=== PATIENT | male | born 1955 | race Caucasian/White ===

== ENCOUNTER 2016-03-12 12:33 | Inpatient (IN) | payer OTHER ==
[2016-03-12] MEDS ORDERED: SODIUM CHLORIDE 0.9% 1,000 ML IV ONE (15:04)
--- NOTE | 2016-03-12 15:11 | ED ---
Wound/Laceration HPI - General Source: patient, RN notes reviewed Mode of arrival: ambulatory Limitations: no limitations <Marva Anne - Last Filed: 03/12/16 20:00> <Daniel Zarco - Last Filed: 03/13/16 01:37> - General Chief Complaint: Wound/Laceration Stated Complaint: Leg Infection Time Seen by Provider: 03/12/16 13:54 - History of Present Illness Initial Comments: Patient is a 60-year-old male to the emergency room for evaluation of right foot infection. Patient states he's had a foot wound for the past several weeks that has been treated at the wound center. Patient states that he was here on 03/08/16 has placed on antibiotics and told to follow-up with Center. Patient states he saw his toxicology teacher today and was advised to come here for admission. Patient denies any worsening pain. Patient does state his foot has become more swollen than usual over the past few days. Patient states he was supposed to go to the [facility] [place] once a week for the past few weeks but did miss about 3 or 4 weeks in a row. Patient states he has tingling in his toes that is normal for him. Patient does admit to a history of diabetes. Patient denies any fevers or chills, nausea, vomiting, abdominal pain, headache, chest pain, shortness of breath. Patient states been taking Tylenol 3 with relief of symptoms. (Marva Anne) - Related Data Home Medications Medication Instructions Recorded Confirmed Acetaminophen with Codeine 1 tab PO Q8H PRN 03/24/15 03/12/16 [Tylenol w/codeine #3] Doxazosin [Cardura] 4 mg PO HS 03/24/15 03/12/16 Ferrous Sulfate [Feosol] 325 mg PO BID 03/24/15 03/12/16 Fluticasone Nasal [place] [Flonase 2 spray EA NOSTRIL DAILY PRN 03/24/15 03/12/16 Nasal [place]] Gabapentin 800 mg PO TID 03/24/15 03/12/16 Simvastatin [Zocor] 20 mg PO HS 03/24/15 03/12/16 amLODIPine [Norvasc] 2.5 mg PO DAILY 03/24/15 03/12/16 glipiZIDE [Glucotrol] 10 mg PO DAILY 03/24/15 03/12/16 metFORMIN HCL [Glucophage] 500 mg PO BID-W/MEALS 03/24/15 03/12/16 ALPRAZolam [Xanax] 1 mg PO BID 04/21/15 03/12/16 SILVER sulfADIAZINE CREAM 1 applic TOPICAL HS 04/21/15 03/12/16 [Silvadene Cream] Aspirin EC [Ecotrin] 325 mg PO DAILY 03/08/16 03/12/16 Fenofibrate [Lofibra] 160 mg PO HS 03/08/16 03/12/16 Mupirocin [Mupirocin 2%] 1 applic TOPICAL HS 03/08/16 03/12/16 Previous Rx's Medication Instructions Recorded Cephalexin [Keflex] 500 mg PO Q6HR #40 cap 03/08/16 Allergies Allergy/AdvReac Type Severity Reaction Status Date / Time No Known Allergies Allergy Verified 03/12/16 16:31 Review of Systems ROS Other: All systems not noted in ROS Statement are negative. <Marva Anne - Last Filed: 03/12/16 20:00> ROS Other: All systems not noted in ROS Statement are negative. <Daniel Zarco - Last Filed: 03/13/16 01:37> ROS Statement: Those systems with pertinent positive or pertinent negative responses have been documented in the HPI. (Marva Anne) (Daniel Zarco) Past Medical History Past Medical History: Diabetes Mellitus, Hyperlipidemia, Hypertension, Osteoarthritis (OA) Additional Past Medical History / Comment(s): neuropathy. wound rt foot History of Any Multi-Drug Resistant Organisms: None Reported Past Surgical History: Tonsillectomy Additional Past Surgical History / Comment(s): cyst removed from testicle Past Anesthesia/Blood Transfusion Reactions: No Reported Reaction Past Psychological History: Anxiety Smoking Status: Current every day smoker Past Alcohol Use History: None Reported Past Drug Use History: None Reported - Past Family History Mother Family Medical History: Unable to Obtain Additional Family Medical History / Comment(s): adopted <Marva Anne - Last Filed: 03/12/16 20:00> General Exam Limitations: no limitations General appearance: alert, in no apparent distress Head exam: Present: atraumatic, normocephalic, normal inspection Eye exam: Present: normal appearance ENT exam: Present: normal exam Neck exam: Present: normal inspection Respiratory exam: Present: normal lung sounds bilaterally. Absent: respiratory distress Cardiovascular Exam: Present: regular rate, normal rhythm, normal heart sounds Right Foot/Toe exam: Present: full ROM. Absent: normal inspection (Wound of the dorsal medial aspect of the first MTP joint with surrounding cellulitis/ induration over the dorsal portion of the foot), tenderness Neurovascular tendon exam: Absent: pulse deficit (2+ dorsal pedal and posterior tibial pulses), abnormal cap refill (Capillary refill less than 2 seconds.) Back exam: Present: normal inspection Neurological exam: Present: alert, oriented X3, CN II-XII intact Psychiatric exam: Present: normal affect, normal mood Skin exam: Present: warm, dry, normal color. Absent: rash <Marva Anne - Last Filed: 03/12/16 20:00> <Daniel Zarco - Last Filed: 03/13/16 01:37> - General Exam Comments Initial Comments: Sitting in exam room in no acute distress. (Marva Anne) Medical Decision Making - Lab Data Result diagrams: 03/12/16 15:27 03/12/16 15:27 - Radiology Data Radiology results: report reviewed, image reviewed <Marva Anne - Last Filed: 03/12/16 20:00> - Lab Data Result diagrams: 03/12/16 15:27 03/12/16 15:27 <Daniel Zarco - Last Filed: 03/13/16 01:37> - Medical Decision Making Patient is a 60-year-old male presents to the emergency room for evaluation of right first metatarsal wound. Patient was sent here from Dr. Roman for admission with IV antibiotics/possible amputation of right foot. Right foot x- ray noted for osteomyelitis of distal first metatarsal bone. Labs incidentally noted for anemia, hemoglobin 6.0. Patient was ordered 1 unit of packed red blood cells and protonix. Patient will be started on IV antibiotics for right foot osteomyelitis. Case discussed with Dr. Abad. Dr. Zarco discussed case with Dr. Rob who agreed to admit patient. Patient will be consulted with Dr. Beltre. Plan discussed with patient. (Marva Anne) I saw this patient in conjunction with the physician assistant to the dean. I performed independent history and physical exam. Agree with case management. (Daniel Zarco) - Lab Data Lab Results 03/12/16 03/12/16 03/12/16 Range/Units 15:27 15:27 15:27 WBC 8.3 (3.8-10.6) k/uL RBC 2.00 L (4.30-5.90) m/uL Hgb 6.0 L* (13.0-17.5) gm/dL Hct 20.4 L (39.0-53.0) % MCV 102.3 H (80.0-100.0) fL MCH 30.1 (25.0-35.0) pg MCHC 29.4 L (31.0-37.0) g/dL RDW 16.0 H (11.5-15.5) % Plt Count 688 H (150-450) k/uL Neutrophils % 76 % Lymphocytes % 15 % Monocytes % 5 % Eosinophils % 1 % Basophils % 1 % Neutrophils # 6.3 (1.3-7.7) k/uL Lymphocytes # 1.2 (1.0-4.8) k/uL Monocytes # 0.4 (0-1.0) k/uL Eosinophils # 0.1 (0-0.7) k/uL Basophils # 0.1 (0-0.2) k/uL Hypochromasia Marked Poikilocytosis Slight Macrocytosis Slight PT (9.0-12.0) sec INR (<1.1) APTT (22.0-30.0) sec Sodium 143 (137-145) mmol/L Potassium 4.7 (3.5-5.1) mmol/L Chloride 114 H (98-107) mmol/L Carbon Dioxide 23 (22-30) mmol/L Anion Gap 6 mmol/L BUN 19 (9-20) mg/dL Creatinine 1.30 H (0.66-1.25) mg/dL Est GFR (MDRD) Af Amer >60 (>60 ml/min/1.73 sqM) Est GFR (MDRD) Non-Af 56 (>60 ml/min/1.73 sqM) Glucose 104 H (74-99) mg/dL Plasma Lactic Acid Edy 0.7 (0.7-2.0) mmol/L Calcium 8.2 L (8.4-10.2) mg/dL Total Bilirubin 0.2 (0.2-1.3) mg/dL AST 15 L (17-59) U/L ALT 27 (21-72) U/L Alkaline Phosphatase 98 (38-126) U/L Total Protein 5.5 L (6.3-8.2) g/dL Albumin 2.5 L (3.5-5.0) g/dL Stool Occult Blood (Negative) Blood Type Blood Type Recheck Antibody Screen Crossmatch Spec Expiration Date 03/12/16 03/12/16 03/12/16 Range/Units 15:58 16:34 17:20 WBC (3.8-10.6) k/uL RBC (4.30-5.90) m/uL Hgb (13.0-17.5) gm/dL Hct (39.0-53.0) % MCV (80.0-100.0) fL MCH (25.0-35.0) pg MCHC (31.0-37.0) g/dL RDW (11.5-15.5) % Plt Count (150-450) k/uL Neutrophils % % Lymphocytes % % Monocytes % % Eosinophils % % Basophils % % Neutrophils # (1.3-7.7) k/uL Lymphocytes # (1.0-4.8) k/uL Monocytes # (0-1.0) k/uL Eosinophils # (0-0.7) k/uL Basophils # (0-0.2) k/uL Hypochromasia Poikilocytosis Macrocytosis PT 10.7 (9.0-12.0) sec INR 1.1 (<1.1) APTT 24.5 (22.0-30.0) sec Sodium (137-145) mmol/L Potassium (3.5-5.1) mmol/L Chloride (98-107) mmol/L Carbon Dioxide (22-30) mmol/L Anion Gap mmol/L BUN (9-20) mg/dL Creatinine (0.66-1.25) mg/dL Est GFR (MDRD) Af Amer (>60 ml/min/1.73 sqM) Est GFR (MDRD) Non-Af (>60 ml/min/1.73 sqM) Glucose (74-99) mg/dL Plasma Lactic Acid Edy (0.7-2.0) mmol/L Calcium (8.4-10.2) mg/dL Total Bilirubin (0.2-1.3) mg/dL AST (17-59) U/L ALT (21-72) U/L Alkaline Phosphatase (38-126) U/L Total Protein (6.3-8.2) g/dL Albumin (3.5-5.0) g/dL Stool Occult Blood Negative (Negative) Blood Type O Negative Blood Type Recheck No Antibody Screen NEGATIVE Crossmatch See Detail Spec Expiration Date 03/15/16 23:59 (Daniel Zarco) Disposition Decision Date: 03/12/16 <Marva Anne - Last Filed: 03/12/16 20:00> <Daniel Zarco - Last Filed: 03/13/16 01:37> Clinical Impression: Anemia, Foot osteomyelitis, right Disposition: ADMITTED IP TO THIS [facility] Condition: Stable
[2016-03-12 15:44] LABS: Basophils # (A) 0.1 k/uL (0-0.2); Basophils % (A) 1 %; CH 31.3; CHCM 30.5; Eosinophils # (A) 0.1 k/uL (0-0.7); Eosinophils % (A) 1 %; HCT 20.4 % (39.0-53.0); HDW 3.48; Hypochromasia Marked; Luc # (Auto) 0.16; Luc % (Auto) 2; Lymphocytes # (A) 1.2 k/uL (1.0-4.8); Lymphocytes % (A) 15 %; MCH 30.1 pg (25.0-35.0); MCHC 29.4 g/dL (31.0-37.0); MCV 102.3 fL (80.0-100.0); Macrocytosis Slight; Mean Platelet Volume 7.1; Monocytes # (A) 0.4 k/uL (0-1.0); Monocytes % (A) 5 %; Neutrophils # (A) 6.3 k/uL (1.3-7.7); Neutrophils % (A) 76 %; Poikilocytosis Slight; WBC 8.3 k/uL (3.8-10.6); WBC (Perox) 8.83
[2016-03-12 15:49] LABS: ALT 27 U/L (21-72); AST 15 U/L (17-59); Alkaline Phosphatase 98 U/L (38-126); Anion Gap 6 mmol/L; Blood Urea Nitrogen 19 mg/dL (9-20); Calcium 8.2 mg/dL (8.4-10.2); Carbon Dioxide 23 mmol/L (22-30); Chloride 114 mmol/L (98-107); Glucose 104 mg/dL (74-99); Non-African American GFR(MDRD) 56 (>60 ml/min/1.73 sqM); Potassium 4.7 mmol/L (3.5-5.1); Sodium 143 mmol/L (137-145); Total Bilirubin 0.2 mg/dL (0.2-1.3); Total Protein 5.5 g/dL (6.3-8.2)
--- NOTE | 2016-03-12 15:56 | XR ---
EXAMINATION TYPE: XR foot complete RT DATE OF EXAM: 03/12/2016 3:47 PM COMPARISON: 03/08/2016 HISTORY: Nonhealing wound right foot TECHNIQUE: 3 views right foot FINDINGS: Soft tissue swelling is over the first metatarsophalangeal joint space and over the first d igit. There is erosion of the metaphysis of the distal first metatarsal. Open wound appears to be adj acent. Findings are suggestive for acute osteomyelitis. Fracture of the distal first metatarsal is no t excluded. IMPRESSIONS: 1. Findings suggestive for osteomyelitis distal first metatarsal.
[2016-03-12 16:20] LABS: INR 1.1 (<1.1); Partial Thromboplastin Time 24.5 sec (22.0-30.0); Prothrombin Time 10.7 sec (9.0-12.0)
[2016-03-12] MEDS ORDERED: MORPHINE SULFATE 4 MG/ML SYRINGE IVP STA (17:20)
[2016-03-12] MEDS ORDERED: IV VANCOMYCIN PER PHARMACY 1 EACH MISC MISCELLANE PRN ×2 (17:21→18:46)
[2016-03-12] MEDS ORDERED: PANTOPRAZOLE 40 MG/10 ML VIAL IVP ONE (17:22)
[2016-03-12] MEDS ORDERED: VANCOMYCIN 1,250 MG in SODIUM CHLORIDE 0.9% 250 ML IVPB STA (17:24)
[2016-03-12] MEDS ORDERED: ONDANSETRON 4 MG/2 ML VIAL IVP PRN (17:30)
[2016-03-12] MEDS ORDERED: NALOXONE 0.4 MG/ML 1 ML VIAL IV PRN (17:30)
[2016-03-12] MEDS ORDERED: MORPHINE SULFATE 4 MG/ML SYRINGE IV PRN (17:30)
[2016-03-12] MEDS: SODIUM CHLORIDE 0.9% 1,000 ML IV SCH (18:11)
[2016-03-12 18:38] LABS: Glucose,Whole Blood 75 mg/dL (75-99)
[2016-03-12 20:45] LABS: Glucose,Whole Blood 185 mg/dL (75-99)
[2016-03-12] MEDS ORDERED: INSULIN LISPRO (humaLOG) 300 UNIT/3 ML VIAL SQ SCH (21:00)
[2016-03-12] MEDS ORDERED: FLUTICASONE 50MCG/SPRAY NASAL 16GM EA NOSTRIL PRN (21:38)
[2016-03-12] MEDS ORDERED: ACET/COD 300 MG/30 MG STARTER PACK 6 TAB BTL PO PRN (21:38)
[2016-03-12] MEDS ORDERED: TEMAZEPAM 15 MG CAP PO PRN (21:40)
[2016-03-12] MEDS ORDERED: ALPRAZolam 0.25 MG TAB PO PRN (21:40)
[2016-03-12] MEDS: GABAPENTIN 400 MG CAP PO SCH (22:23)
--- NOTE | 2016-03-12 22:55 | HP ---
DATE OF ADMISSION: 03/12/2016 CHIEF COMPLAINTS: Pain and swelling of the right foot. HISTORY OF PRESENT ILLNESS: This 60-year-old gentleman with a past medical history of multiple medical problems, including diabetes mellitus, hypertension, hyperlipidemia, DJD, history of peripheral neuropathy, anxiety, being followed by Dr. Chatman in the outpatient setting, was noted to have a diabetic ulcer, painful ulcer, on the right foot for the last several weeks. Patient does go to Wound Care and subsequently patient was also seen by a auto body painter. Local packing was done. Because of lack of improvement, increased swelling and pain, the patient came to [facility] and was admitted for further evaluation and treatment. Osteomyelitis is suspected at this time. The patient also has a history of noncompliance. Patient apparently missed several appointments in between. There is no history of any fever, rigor, or chills. No history of any headache, loss of consciousness, seizures. The patient was found to be anemic in the ER with a hemoglobin of 6, and no active bleeding was noted. One unit transfusion has been arranged. PAST MEDICAL HISTORY: 1. Diabetes. 2. Hypertension. 3. Hyperlipidemia. 4. DJD. 5. History of peripheral neuropathy. 6. History of anxiety. Medications prior to admission include: 1. Glucophage 500 mg p.o. b.i.d. with meals. 2. Glucotrol 10 mg p.o. daily. 3. Norvasc 2.5 mg daily. 4. Zocor 20 mg at bedtime. 5. Silvadene 1 application at bedtime. 6. Mupirocin 2% at bedtime. 7. Gabapentin 800 mg t.i.d. 8. Fluticasone nasal spray 2 sprays daily p.r.n. 9. Iron sulfate 325 mg p.o. b.i.d. 10. Lofibra 160 mg p.o. at bedtime. 11. Cardura 4 mg at bedtime. 12. Keflex 500 mg q.6 hours. 13. Ecotrin 325 mg p.o. daily. 14. Tylenol No. 3 one tablet q.8 p.r.n. 15. Xanax 1 mg p.o. b.i.d. ALLERGIES: NONE. FAMILY HISTORY: Patient is adopted; unable to obtain. SOCIAL HISTORY: History of smoking currently. No history of alcohol intake. REVIEW OF SYSTEMS: ENT: No diminished hearing. No diminished vision. CARDIOVASCULAR SYSTEM: No angina, palpitations. RESPIRATORY SYSTEM: No cough, hemoptysis. GI: No nausea, vomiting. : No dysuria, retention. NERVOUS SYSTEM: As mentioned earlier. ALLERGY/IMMUNOLOGY: No asthma, hayfever. MUSCULOSKELETAL: As mentioned earlier. HEMATOLOGY/ONCOLOGY: As mentioned earlier. ENDOCRINE: Diabetes mellitus. CONSTITUTIONAL: As mentioned earlier. DERMATOLOGY: As mentioned earlier. RHEUMATOLOGY: Negative. PSYCHIATRY: As mentioned earlier. PHYSICAL EXAMINATION: Patient is alert and oriented x3. Pulse is 80. Blood pressure 157/71, respiration 20, temperature 97.1. Pulse ox 98% on room air. HEENT: Conjunctivae normal. Oral mucosa moist. CARDIOVASCULAR SYSTEM: S1, S2 muffled. RESPIRATORY SYSTEM: Breath sounds diminished at the bases. No rhonchi. No crackles. ABDOMEN: Soft, non-tender. No mass palpable. LEGS: Right leg swelling and erythema. Some tenderness. The wound is also packed near the first metatarsophalangeal joint. Pulses are diminished bilaterally. NERVOUS SYSTEM: Higher functions as mentioned earlier. Cranial nerves 2 through 12 grossly intact. Motor system appears to be normal. Sensorium in the lower limbs, suggestive of peripheral neuropathy. LYMPHATICS: No lymph node palpable in neck, axillae or groin. SKIN: As mentioned earlier. JOINTS: No active deformity. LABS: WBC 8.3, hemoglobin 6, MCV 102.3. Sodium 143, potassium 4.7. Creatinine is 1.3. Albumin is 2.5. ASSESSMENT: 1. Acute diabetic foot of the right foot/leg with failure of outpatient treatment. 2. Anemia, macrocytic, possibly nutritional. 3. Increased platelets. 4. History of noncompliance. 5. Increased creatinine with mild chronic kidney disease, stage II. 6. Diabetes mellitus, type 2. 7. Diabetic peripheral neuropathy. 8. Hypoalbuminemia with mild to moderate protein-calorie malnutrition. 9. Mild hypocalcemia. 10. Hypertension. 11. Hyperlipidemia. 12. History of degenerative joint disease. 13. History of peripheral neuropathy. 14. Anxiety. 15. Continued ongoing nicotine dependence. RECOMMENDATIONS AND DISCUSSION: In this 60-year-old gentleman who presented with multiple complex medical issues, we will monitor the patient closely, continue the current medications, continue with symptomatic treatment, continue with broad-spectrum IV antibiotics. Recommend wound care, then vascular surgery as well as infectious disease evaluations. Monitor blood sugars closely. Resume the home medications. Symptomatic treatment. Guarded prognosis because of multiple complex medical issues. Discussed with the patient, who understands. Further recommendations to follow. A copy of this dictation is being forwarded to Dr. Nils Chatman, who is the primary physician. JEREL
[2016-03-12] MEDS: DOXAZOSIN 4 MG TAB PO SCH (23:02)
[2016-03-12] MEDS: HYDROcodone/APAP 5-325MG 1 EACH TAB PO PRN (23:09)
[2016-03-12] MEDS: PIPERACILLIN-TAZOBACTAM 3.375 GM in DEXTROSE/WATER 1 50ML.BAG IVPB SCH (23:12)
[2016-03-13 00:07] LABS: Glucose,Whole Blood 245 mg/dL (75-99)
[2016-03-13 07:45] LABS: Glucose,Whole Blood 80 mg/dL (75-99)
[2016-03-13] MEDS: metFORMIN 500 MG TAB PO SCH ×2 (07:45→18:24)
[2016-03-13] MEDS: glipiZIDE 10 MG TAB PO SCH (07:45)
[2016-03-13] MEDS: INSULIN LISPRO (humaLOG) 300 UNIT/3 ML VIAL SQ SCH ×4 (07:45→21:57)
[2016-03-13] MEDS: ASPIRIN 325 MG TAB PO SCH (08:05)
[2016-03-13] MEDS: GABAPENTIN 400 MG CAP PO SCH ×3 (08:05→21:54)
[2016-03-13] MEDS: HEPARIN SODIUM,PORCINE 5,000 UNIT/ML 1 ML VIAL SQ SCH ×2 (08:06→21:57)
[2016-03-13] MEDS: ALPRAZolam 0.5 MG TAB PO SCH ×2 (08:06→21:54)
[2016-03-13] MEDS: NICOTINE 14MG/24HR PATCH TRANSDERM SCH (08:10)
[2016-03-13] MEDS: PANTOPRAZOLE 40 MG/10 ML VIAL IV SCH (08:10)
[2016-03-13] MEDS: SODIUM CHLORIDE 0.9% 1,000 ML IV SCH ×2 (08:11→21:54)
[2016-03-13] MEDS: amLODIPine 2.5 MG TAB PO SCH (08:11)
[2016-03-13] MEDS: PIPERACILLIN-TAZOBACTAM 3.375 GM in DEXTROSE/WATER 1 50ML.BAG IVPB SCH ×2 (08:11→18:24)
[2016-03-13 08:45] LABS: Anisocytosis Slight; Basophils % (A) 1 %; CH 31.1; Eosinophils # (A) 0.1 k/uL (0-0.7); Eosinophils % (A) 2 %; HCT 20.4 % (39.0-53.0); Hypochromasia Marked; Luc # (Auto) 0.14; Luc % (Auto) 2; Lymphocytes # (A) 1.2 k/uL (1.0-4.8); Lymphocytes % (A) 19 %; MCH 30.4 pg (25.0-35.0); MCHC 30.2 g/dL (31.0-37.0); MCV 100.7 fL (80.0-100.0); Macrocytosis Slight; Mean Platelet Volume 7.1; Monocytes # (A) 0.4 k/uL (0-1.0); Monocytes % (A) 6 %; Neutrophils # (A) 4.3 k/uL (1.3-7.7); Neutrophils % (A) 70 %; Poikilocytosis Slight; RBC 2.03 m/uL (4.30-5.90); RDW 16.6 % (11.5-15.5); WBC 6.1 k/uL (3.8-10.6); WBC (Perox) 6.33
[2016-03-13 08:53] LABS: HGB 6.2 gm/dL (13.0-17.5)
[2016-03-13] MEDS ORDERED: VANCOMYCIN 1,250 MG in SODIUM CHLORIDE 0.9% 250 ML IVPB SCH (09:00)
[2016-03-13 09:05] LABS: Anion Gap 6 mmol/L; Blood Urea Nitrogen 16 mg/dL (9-20); Calcium 7.8 mg/dL (8.4-10.2); Carbon Dioxide 21 mmol/L (22-30); Chloride 114 mmol/L (98-107); Glucose 71 mg/dL (74-99); Non-African American GFR(MDRD) 56 (>60 ml/min/1.73 sqM); Potassium 4.4 mmol/L (3.5-5.1); Sodium 141 mmol/L (137-145)
[2016-03-13] MEDS ORDERED: MINERAL OIL-WHITE PETROLATUM 120 GM JAR TOPICAL PRN (11:10)
--- NOTE | 2016-03-13 11:28 | XR ---
EXAMINATION TYPE: XR foot complete LT DATE OF EXAM: 03/13/2016 11:21 AM CLINICAL HISTORY: Left foot pain, rule out osteomyelitis. TECHNIQUE: Frontal, lateral, and oblique images of the left foot are obtained. COMPARISON: Left foot x-ray July 11, 2015. FINDINGS: Osseous structures are demineralized which is noted to lower radiographic sensitivity. Ther e is no acute fracture/dislocation evident in the left foot. There is old fracture deformity proxima l to mid shaft level of second metatarsal redemonstrated. Marked flexion in the toes makes evaluation at this level suboptimal. There is moderate spurring at the base of first metatarsal articulation wi th cuneiforms. Inferior calcaneal spurring is seen. There is mild to moderate spurring along dorsal s urface at hind to midfoot level redemonstrated. No suspicious new cortical destruction or periosteal reaction seen. Mild diffuse subcutaneous edema is present. IMPRESSION: There is no significant change from prior study. There is no convincing radiographic helena dence for acute osteomyelitis.
[2016-03-13] MEDS ORDERED: FUROSEMIDE 10 MG/ML 2 ML VIAL IV ONE (11:33)
--- NOTE | 2016-03-13 11:43 | P.CON ---
Consult Note - . Consult date: 03/13/16 Assessment/Plan:: Subjective:Patient is a 60-year-old male seen inpatient room for consultation and for evaluation of right foot infection. She was sent to the emergency room from the wound care clinic yesterday for admission and treatment of infection osteomyelitis acute right foot. Patient was evaluated emergency room and admitted for treatment of same. Patient developed a wound infection on his right foot approximately 2 weeks ago. He self medicated at home with application of bacitracin and iodine. The foot continued to degrade any presented to the emergency room this week. He was evaluated and placed on oral Keflex. Patient presented to the wound care clinic yesterday and was seen and evaluated. At this time patient had an abscess of the dorsal medial aspect of the first metatarsal with tracking both dorsally and medially to the first metatarsal. Review of radiographs showed acute osteomyelitis with fragmentation and fracture of the first metatarsal head. Patient was then sent for treatment as an inpatient for the osteomyelitis with plans to amputate the hallux as well as partial amputation first ray after IV antibiosis. past medical history was reviewed as below. Patient today is also complaining of increased pain of his left foot with ambulation. Patient states her foot is hurting on the top of his foot. Patient voices no other complaints. Objective: Home Medications Medication Instructions Recorded Confirmed Acetaminophen with Codeine 1 tab PO Q8H PRN 03/24/15 03/12/16 [Tylenol w/codeine #3] Doxazosin [Cardura] 4 mg PO HS 03/24/15 03/12/16 Ferrous Sulfate [Feosol] 325 mg PO BID 03/24/15 03/12/16 Fluticasone Nasal [place] [Flonase 2 spray EA NOSTRIL DAILY PRN 03/24/15 03/12/16 Nasal [place]] Gabapentin 800 mg PO TID 03/24/15 03/12/16 Simvastatin [Zocor] 20 mg PO HS 03/24/15 03/12/16 amLODIPine [Norvasc] 2.5 mg PO DAILY 03/24/15 03/12/16 glipiZIDE [Glucotrol] 10 mg PO DAILY 03/24/15 03/12/16 metFORMIN HCL [Glucophage] 500 mg PO BID-W/MEALS 03/24/15 03/12/16 ALPRAZolam [Xanax] 1 mg PO BID 04/21/15 03/12/16 SILVER sulfADIAZINE CREAM 1 applic TOPICAL HS 04/21/15 03/12/16 [Silvadene Cream] Aspirin EC [Ecotrin] 325 mg PO DAILY 03/08/16 03/12/16 Fenofibrate [Lofibra] 160 mg PO HS 03/08/16 03/12/16 Mupirocin [Mupirocin 2%] 1 applic TOPICAL HS 03/08/16 03/12/16 Previous Rx's Medication Instructions Recorded Cephalexin [Keflex] 500 mg PO Q6HR #40 cap 03/08/16 Allergies Allergy/AdvReac Type Severity Reaction Status Date / Time No Known Allergies Allergy Verified 03/12/16 16:31 Review of Systems ROS Other: Patient has an infection osteomyelitis of the right foot. Patient also has low hemoglobin and is being treated for this with transfusions Past Medical History Past Medical History: Diabetes Mellitus, Hyperlipidemia, Hypertension, Osteoarthritis (OA) Additional Past Medical History / Comment(s): neuropathy. wound rt foot History of Any Multi-Drug Resistant Organisms: None Reported Past Surgical History: Tonsillectomy Additional Past Surgical History / Comment(s): cyst removed from testicle Past Anesthesia/Blood Transfusion Reactions: No Reported Reaction Past Psychological History: Anxiety Smoking Status: Current every day smoker Past Alcohol Use History: None Reported Past Drug Use History: None Reported - Past Family History Mother Family Medical History: Unable to Obtain Additional Family Medical History / Comment(s): adopted General Exam Limitations: no limitations General appearance: alert, in no apparent distress Head exam: Present: atraumatic, normocephalic, normal inspection Eye exam: Present: normal appearance ENT exam: Present: normal exam Neck exam: Present: normal inspection Respiratory exam: Present: normal lung sounds bilaterally. Absent: respiratory distress Cardiovascular Exam: Present: regular rate, normal rhythm, normal heart sounds Right Neurovascular tendon exam: Absent: pulse deficit (2+ dorsal pedal and posterior tibial pulses), abnormal cap refill (Capillary refill less than 2 seconds.) Back exam: Present: normal inspection Neurological exam: Present: alert, oriented X3, CN II-XII intact Psychiatric exam: Present: normal affect, normal mood Skin exam: Present: warm, dry, normal color. Absent: rash Podiatric exam: Dermatologic exam: Patient has an abscess ulceration on the dorsal medial aspect of the first metatarsal head right. This abscess is proximally a centimeter in diameter. The absent penetrates both dorsally and medially to the first metatarsal head. Both abscesses penetrate approximately 2 cm under the dermis. There was no purulence upon inspection and when the wound was flushed with sterile saline. Patient also has a xerosis to the dorsum of the left foot with diminishing edema since last night. There is also diminishing erythema. There is diminishing pain with palpation. Neurologic exam: Patient has diminished neuro logic findings in a stocking glove distribution consistent with diabetic neuropathy bilateral up to including the lower legs. Deep tendon reflexes diminished bilateral light touch diminished bilateral vibratory diminished bilateral. 2. tactile diminished bilateral Vascular exam: Pedal pulses are diminished bilateral. There is good sub plexus venous filling time there is no digital hair 10 extremity is cool to warm bilateral. no atrophic changes of the dermis or other dermal structures bilateral. Orthopedic exam: Diminished range of motion of the ankle joint bilateral patient has subluxation of the talonavicular joint left greater than right. Range of motion of the remaining pedal joints are diminished bilateral. There is pain with range of motion first metatarsophalangeal joint right. All inverters everters plantar flexors dorsiflexors grossly intact and symmetrical bilateral - Lab Data Result diagrams: 03/12/16 15:27 03/12/16 15:27 - Radiology Data Radiology results: report reviewed, image reviewed reviewed yesterday on disc at [facility] [place] - Lab Data Result diagrams: reviewed today copied and charted 03/12/16 15:27 03/12/16 15:27 - Lab Data Lab Results 03/12/16 03/12/16 03/12/16 Range/Units 15:27 15:27 15:27 WBC 8.3 (3.8-10.6) k/uL RBC 2.00 L (4.30-5.90) m/uL Hgb 6.0 L* (13.0-17.5) gm/dL Hct 20.4 L (39.0-53.0) % MCV 102.3 H (80.0-100.0) fL MCH 30.1 (25.0-35.0) pg MCHC 29.4 L (31.0-37.0) g/dL RDW 16.0 H (11.5-15.5) % Plt Count 688 H (150-450) k/uL Neutrophils % 76 % Lymphocytes % 15 % Monocytes % 5 % Eosinophils % 1 % Basophils % 1 % Neutrophils # 6.3 (1.3-7.7) k/uL Lymphocytes # 1.2 (1.0-4.8) k/uL Monocytes # 0.4 (0-1.0) k/uL Eosinophils # 0.1 (0-0.7) k/uL Basophils # 0.1 (0-0.2) k/uL Hypochromasia Marked Poikilocytosis Slight Macrocytosis Slight PT (9.0-12.0) sec INR (<1.1) APTT (22.0-30.0) sec Sodium 143 (137-145) mmol/L Potassium 4.7 (3.5-5.1) mmol/L Chloride 114 H (98-107) mmol/L Carbon Dioxide 23 (22-30) mmol/L Anion Gap 6 mmol/L BUN 19 (9-20) mg/dL Creatinine 1.30 H (0.66-1.25) mg/dL Est GFR (MDRD) Af Amer >60 (>60 ml/min/1.73 sqM) Est GFR (MDRD) Non-Af 56 (>60 ml/min/1.73 sqM) Glucose 104 H (74-99) mg/dL Plasma Lactic Acid Edy 0.7 (0.7-2.0) mmol/L Calcium 8.2 L (8.4-10.2) mg/dL Total Bilirubin 0.2 (0.2-1.3) mg/dL AST 15 L (17-59) U/L ALT 27 (21-72) U/L Alkaline Phosphatase 98 (38-126) U/L Total Protein 5.5 L (6.3-8.2) g/dL Albumin 2.5 L (3.5-5.0) g/dL Stool Occult Blood (Negative) Blood Type Blood Type Recheck Antibody Screen Crossmatch Spec Expiration Date 03/12/16 03/12/16 03/12/16 Range/Units 15:58 16:34 17:20 WBC (3.8-10.6) k/uL RBC (4.30-5.90) m/uL Hgb (13.0-17.5) gm/dL Hct (39.0-53.0) % MCV (80.0-100.0) fL MCH (25.0-35.0) pg MCHC (31.0-37.0) g/dL RDW (11.5-15.5) % Plt Count (150-450) k/uL Neutrophils % % Lymphocytes % % Monocytes % % Eosinophils % % Basophils % % Neutrophils # (1.3-7.7) k/uL Lymphocytes # (1.0-4.8) k/uL Monocytes # (0-1.0) k/uL Eosinophils # (0-0.7) k/uL Basophils # (0-0.2) k/uL Hypochromasia Poikilocytosis Macrocytosis PT 10.7 (9.0-12.0) sec INR 1.1 (<1.1) APTT 24.5 (22.0-30.0) sec Sodium (137-145) mmol/L Potassium (3.5-5.1) mmol/L Chloride (98-107) mmol/L Carbon Dioxide (22-30) mmol/L Anion Gap mmol/L BUN (9-20) mg/dL Creatinine (0.66-1.25) mg/dL Est GFR (MDRD) Af Amer (>60 ml/min/1.73 sqM) Est GFR (MDRD) Non-Af (>60 ml/min/1.73 sqM) Glucose (74-99) mg/dL Plasma Lactic Acid Edy (0.7-2.0) mmol/L Calcium (8.4-10.2) mg/dL Total Bilirubin (0.2-1.3) mg/dL AST (17-59) U/L ALT (21-72) U/L Alkaline Phosphatase (38-126) U/L Total Protein (6.3-8.2) g/dL Albumin (3.5-5.0) g/dL Stool Occult Blood Negative (Negative) Blood Type O Negative Blood Type Recheck No Antibody Screen NEGATIVE Crossmatch See Detail Spec Expiration Date 03/15/16 23:59 Plan: After review of patient's chart we had a lengthy discussion with patient as to treatment plan. At this time his hemoglobin is low and would advise normalizing this before any surgical intervention unless patient become septic and the removal of the infected tissue becomes urgent. Once the hemoglobin is normalized we discussed with patient treatment plan and options. Discussed with patient benefits of amputation of the infected tissue so as to minimize risk of spread of infection to adjacent areas which would result in a more rest of amputation and possible loss of limb leg or life. Other options for the patient would be debridement of the bone with retaining the hallux as a nonfunctional to be no physiological benefit to this and we discussed this with the patient. Patient also is complaining of pain of his ipsilateral foot. We will get radiographs to determine if there is any further degradation of a Charcot-type deformity. Today at bedside we flushed the wound on the right foot with approximately 300 mL of sterile saline and packed the wound with iodoform gauze. We then applied a dry sterile dressing. We'll maintain this in changes on a daily basis and orders to nursing was given for same. Also discussed with patient WBC scan. We will order WBC scan to be performed as a triphasic bone scan will show positive results due to the fracture and demineralization of bone seen on radiographs. Would like to get the WBC scan to assure that the osteomyelitis is not in any adjacent osseous structures. We will discuss case with attending physician thank you for this consult will follow
[2016-03-13 12:22] LABS: Glucose,Whole Blood 97 mg/dL (75-99)
--- NOTE | 2016-03-13 13:10 | NM ---
EXAMINATION TYPE: NM bone 3 phase DATE OF EXAM: 03/13/2016 12:55 PM COMPARISON: Right foot x-ray from yesterday HISTORY: Assess for right foot osteomyelitis. Open wounds right foot medially towards toes, history d iabetes Triple phase bone scintigraphy was performed following the injection of26.7 mCi Tc 99m MDP. Immediat e images and 4 hours post injection images acquired. FINDINGS: There is asymmetric increased uptake in the distal right foot versus left foot medially on arterial a nd soft tissue phase images. There is similar increased uptake on delayed phase images at level of fi rst toe corresponds to x-ray abnormality of first metatarsal head. IMPRESSION: Three-phase increased uptake correlates with radiographic findings of acute osteomyelitis medially in the right forefoot centered at first metatarsal head.
[2016-03-13] MEDS: MULTIVITAMINS, THERA 1 EACH TAB PO SCH (14:14)
[2016-03-13] MEDS: FERROUS SULFATE 325 MG TAB PO SCH ×2 (14:14→18:29)
[2016-03-13] MEDS: VANCOMYCIN 1,250 MG in SODIUM CHLORIDE 0.9% 250 ML IVPB SCH (14:47)
[2016-03-13 17:21] LABS: Glucose,Whole Blood 185 mg/dL (75-99)
[2016-03-13] MEDS: HYDROcodone/APAP 5-325MG 1 EACH TAB PO PRN (18:25)
--- NOTE | 2016-03-13 18:25 | P.CONS ---
History of Present Illness - Reason for Consult Consult date: 03/13/16 - Chief Complaint Worsening ulcer right foot with cellulitis - History of Present Illness 60-year-old male with a long-standing history of diabetes mellitus who is developed significant ulcerations to his feet in the past. He has prior toe amputation. Is referred to infectious disease regarding the abnormalities to the right foot second toe. X-rays and scans reveal evidence of osteomyelitis to the distal tuft. The patient however at this time has no active ulceration. He has been followed by an outside band shover for quite some time. They're one point in time amputation of the distal tuft was recommended. However the ulceration was healed over time and antibiotic therapy. Although the foot remained markedly deformed in its shape. He has a history of Charcot foot. And with his neuropathy was not concerned by the changes that were occurring. He is now been seen by his band shover recently. There is open ulcerations to the medial aspect of the first metatarsal head. There is gross deformity to the region. There is evidence of underlying osteomyelitis. As well as ascending infection. No showing some improvement with antibiotic therapy. The patient has been advised for amputation to this destroyed area. Which she is declining at this time. Review of Systems HEENT:Denies headache has poor vision. Denies sinus or mouth discomforts. Denies neck stiffness or pain. Denies significant oral cavity pain. Denies difficulty on swallowing. Lungs: Denies significant shortness of breath, cough, sputum production, or hemoptysis. Cardiovascular: Denies significant shortness of breath, chest pain, chest wall pain, orthopnea, dyspnea on exertion, syncope Gastrointestinal:Denies nausea, vomiting, diarrhea, constipation, hematemesis, melena, hematochezia. No no significant change of bowel habit noticed. Musculoskeletal: denies significant myalgias or arthralgias. Has neuropathy Little sensation to his feet. Has bilateral Charcot foot. Skin: Ongoing ulceration to the right foot.. Neuro: Denies headache or visual change. Denies any new onset weakness or difficulty with ambulation. Denies falls or seizures. Psychiatric:Denies anxiety or depression. Endocrine: Denies significant fatigue, denies significant weight loss or weight gain. Past Medical History Past Medical History: Diabetes Mellitus, Hyperlipidemia, Hypertension, Osteoarthritis (OA) Additional Past Medical History / Comment(s): neuropathy. wound rt foot History of Any Multi-Drug Resistant Organisms: None Reported Past Surgical History: Tonsillectomy Additional Past Surgical History / Comment(s): cyst removed from testicle Past Anesthesia/Blood Transfusion Reactions: No Reported Reaction Past Psychological History: Anxiety Smoking Status: Current every day smoker Past Alcohol Use History: None Reported Past Drug Use History: None Reported - Past Family History Mother Family Medical History: Unable to Obtain Additional Family Medical History / Comment(s): adopted Medications and Allergies Home Medications and Allergies Comment(s): Current Medications Acetaminophen/Hydrocodone Bitart ([place] 5-325) 1 each PO Q6HR PRN PRN Reason: Pain Last Admin: 03/12/16 23:09 Dose: 1 each Alprazolam (Xanax) 1 mg PO BID [facility] Last Admin: 03/13/16 08:06 Dose: Not Given Alprazolam (Xanax) 0.25 mg PO TID PRN PRN Reason: Anxiety Amlodipine Besylate (Norvasc) 2.5 mg PO DAILY [facility] Last Admin: 03/13/16 08:11 Dose: 2.5 mg Aspirin (Aspirin) 325 mg PO DAILY [facility] Last Admin: 03/13/16 08:05 Dose: Not Given Atorvastatin Calcium (Lipitor) 10 mg PO HS [facility] Doxazosin Mesylate (Cardura) 4 mg PO HS [facility] Last Admin: 03/12/16 23:02 Dose: 4 mg Fenofibrate (Lofibra) 160 mg PO HS [facility] Ferrous Sulfate (Feosol) 325 mg PO BID@1200,1800 [facility] Last Admin: 03/13/16 14:14 Dose: 325 mg Fluticasone Propionate (Flonase Nasal [place]) 2 spray EA NOSTRIL DAILY PRN PRN Reason: Allergy Symptoms Gabapentin (Neurontin) 800 mg PO TID [facility] Last Admin: 03/13/16 08:05 Dose: Not Given Glipizide (Glucotrol) 10 mg PO W/BRKFST [facility] Last Admin: 03/13/16 07:45 Dose: Not Given Heparin Sodium (Porcine) (Heparin) 5,000 unit SQ Q12HR [facility] Last Admin: 03/13/16 08:06 Dose: Not Given Sodium Chloride (Saline 0.9%) 1,000 mls @ 75 mls/hr IV .[id number] [facility] Last Admin: 03/13/16 08:11 Dose: 75 mls/hr Piperacillin/Tazobactam/ (Dextrose 3.375 gm/ IV Solution) 50 mls @ 12.5 mls/hr IVPB Q8HR [facility] Last Admin: 03/13/16 08:11 Dose: 12.5 mls/hr Vancomycin HCl 1,250 mg/ (Sodium Chloride) 250 mls @ 125 mls/hr IVPB Q24H [facility] Last Admin: 03/13/16 14:47 Dose: 125 mls/hr Insulin Human Lispro (Humalog) 0 unit SQ ACHS [facility] PRN Reason: Protocol Last Admin: 03/13/16 13:25 Dose: Not Given Metformin HCl (Glucophage) 500 mg PO BID-W/MEALS [facility] Last Admin: 03/13/16 07:45 Dose: Not Given Morphine Sulfate (Morphine Sulfate (Inj)) 4 mg IV Q4HR PRN PRN Reason: Severe Pain Last Admin: 03/13/16 08:11 Dose: 4 mg Multi-Ingred Cream/Lotion/Oil/Oint (Eucerin Cream) 1 applic TOPICAL TID PRN PRN Reason: Dry Skin Multivitamins (Theragran) 1 each PO DAILY@1200 [facility] Last Admin: 03/13/16 14:14 Dose: 1 each Mupirocin (Bactroban Oint) 1 applic TOPICAL HS [facility] Naloxone HCl (Narcan) 0.2 mg IV Q2M PRN PRN Reason: Opioid Reversal Nicotine (Habitrol 14mg/24hr Patch) 1 patch TRANSDERM DAILY [facility] Last Admin: 03/13/16 08:10 Dose: 1 patch Ondansetron HCl (Zofran) 4 mg IVP Q8HR PRN PRN Reason: Nausea And Vomiting Pantoprazole Sodium (Protonix) 40 mg IV DAILY [facility] Last Admin: 03/13/16 08:10 Dose: 40 mg Temazepam (Restoril) 15 mg PO HS PRN PRN Reason: Insomnia Home Medications Medication Instructions Recorded Confirmed Type Acetaminophen with Codeine 1 tab PO Q8H PRN 03/24/15 03/12/16 History [Tylenol w/codeine #3] Doxazosin [Cardura] 4 mg PO HS 03/24/15 03/12/16 History Ferrous Sulfate [Feosol] 325 mg PO BID 03/24/15 03/12/16 History Fluticasone Nasal [place] [Flonase 2 spray EA NOSTRIL DAILY PRN 03/24/15 03/12/16 History Nasal [place]] Gabapentin 800 mg PO TID 03/24/15 03/12/16 History Simvastatin [Zocor] 20 mg PO HS 03/24/15 03/12/16 History amLODIPine [Norvasc] 2.5 mg PO DAILY 03/24/15 03/12/16 History glipiZIDE [Glucotrol] 10 mg PO DAILY 03/24/15 03/12/16 History metFORMIN HCL [Glucophage] 500 mg PO BID-W/MEALS 03/24/15 03/12/16 History ALPRAZolam [Xanax] 1 mg PO BID 04/21/15 03/12/16 History SILVER sulfADIAZINE CREAM 1 applic TOPICAL HS 04/21/15 03/12/16 History [Silvadene Cream] Aspirin EC [Ecotrin] 325 mg PO DAILY 03/08/16 03/12/16 History Fenofibrate [Lofibra] 160 mg PO HS 03/08/16 03/12/16 History Mupirocin [Mupirocin 2%] 1 applic TOPICAL HS 03/08/16 03/12/16 History Allergies Allergy/AdvReac Type Severity Reaction Status Date / Time No Known Allergies Allergy Verified 03/12/16 16:31 Physical Exam Vitals: Vital Signs Temp Pulse Pulse Resp BP BP BP 03/13/16 18:03 97.3 F L 82 18 182/81 03/13/16 16:00 89 03/13/16 15:51 97.3 F L 98 18 172/74 03/13/16 15:50 98.7 F 91 20 164/74 03/13/16 15:00 98.5 F 89 20 154/70 03/13/16 14:22 97.7 F 89 18 154/70 03/13/16 14:21 97.7 F 89 18 154/70 03/13/16 14:17 156/70 03/13/16 14:05 97.7 F 90 16 171/76 03/13/16 13:52 98.6 F 92 24 167/74 03/13/16 13:42 97.7 F 89 18 139/67 03/13/16 07:00 99.4 F 90 18 143/69 03/12/16 23:00 96.7 F L 83 83 20 159/68 159/68 03/12/16 19:51 98.1 F 90 20 142/70 03/12/16 19:21 97.9 F 83 20 157/74 03/12/16 19:11 97.1 F L 87 80 20 157/71 157/71 03/12/16 18:30 97.3 F L 95 16 183/81 Pulse Ox 03/13/16 18:03 98 03/13/16 16:00 03/13/16 15:51 03/13/16 15:50 93 L 03/13/16 15:00 96 03/13/16 14:22 96 03/13/16 14:21 96 03/13/16 14:17 03/13/16 14:05 96 03/13/16 13:52 94 L 03/13/16 13:42 96 03/13/16 07:00 95 03/12/16 23:00 98 03/12/16 19:51 03/12/16 19:21 03/12/16 19:11 98 03/12/16 18:30 99 Intake and Output 03/13/16 03/13/16 03/13/16 06:59 14:59 22:59 Intake Total 100 240 310 Balance 100 240 310 Intake: Oral 100 240 Blood Product 0 310 Rc Pheresis 2 As3 Unit 0 [id number] Rc Pheresis As-3 Unit 0 310 [id number] Other: # Voids 1 2 HEENT: Anicteric conjunctiva are pink and moist nasal mucosa grossly intact without significant lesions, there is no thrush. Her dentition Neck: The neck is supple without significant lymphadenopathy or thyromegaly. Lungs: Symmetrical air entry with few expiratory wheezes Heart: Without any murmur Abdomen: Positive bowel sounds soft and nontender without palpable masses or organomegaly. There was no guarding or rebound. Extremities: The upper extremities failed to reveal evidence of any lesions. The left foot plantar has a chronic calluses which he is protecting with foam pads. Right foot shows evidence of the marked abnormality to the first metatarsal head especially medial surface. There is open ulceration. There is palpable bone at the base of the ulceration. There is purulent drainage. There is dense erythema on the foot around the great toe on the dorsum of the foot also. Does not penetrate much above the ankle at this time. There is no cervical lymphadenopathy into the right groin. No other abnormal lymph nodes are noted Neuro: Awake alert oriented to person place and time. He has markedly diminished sensation over both feet from the ankle distal. Patient appears to have some difficulties with processing information. Results CBC & Chem 7: 03/13/16 07:43 03/13/16 07:43 Labs: Abnormal Lab Results - Last 24 Hours (Table) 03/12/16 03/12/16 03/13/16 Range/Units 20:41 23:55 07:43 RBC 2.03 L (4.30-5.90) m/uL Hgb 6.2 L* (13.0-17.5) gm/dL Hct 20.4 L (39.0-53.0) % MCV 100.7 H (80.0-100.0) fL MCHC 30.2 L (31.0-37.0) g/dL RDW 16.6 H (11.5-15.5) % Plt Count 565 H (150-450) k/uL Chloride (98-107) mmol/L Carbon Dioxide (22-30) mmol/L Creatinine (0.66-1.25) mg/dL Glucose (74-99) mg/dL POC Glucose (mg/dL) 185 H 245 H (75-99) mg/dL Calcium (8.4-10.2) mg/dL 03/13/16 03/13/16 Range/Units 07:43 17:03 RBC (4.30-5.90) m/uL Hgb (13.0-17.5) gm/dL Hct (39.0-53.0) % MCV (80.0-100.0) fL MCHC (31.0-37.0) g/dL RDW (11.5-15.5) % Plt Count (150-450) k/uL Chloride 114 H (98-107) mmol/L Carbon Dioxide 21 L (22-30) mmol/L Creatinine 1.30 H (0.66-1.25) mg/dL Glucose 71 L (74-99) mg/dL POC Glucose (mg/dL) 185 H (75-99) mg/dL Calcium 7.8 L (8.4-10.2) mg/dL Microbiology - Last 24 Hours (Table) 03/13/16 01:30 Gram Stain - Preliminary Foot - Right Wound Culture - Preliminary Laboratory Results WBC 6.1 k/uL (3.8-10.6) 03/13/16 07:43 RBC 2.03 m/uL (4.30-5.90) L 03/13/16 07:43 Hgb 6.2 gm/dL (13.0-17.5) L* 03/13/16 07:43 Hct 20.4 % (39.0-53.0) L 03/13/16 07:43 MCV 100.7 fL (80.0-100.0) H 03/13/16 07:43 MCH 30.4 pg (25.0-35.0) 03/13/16 07:43 MCHC 30.2 g/dL (31.0-37.0) L 03/13/16 07:43 RDW 16.6 % (11.5-15.5) H 03/13/16 07:43 Plt Count 565 k/uL (150-450) H 03/13/16 07:43 Neutrophils % 70 % 03/13/16 07:43 Lymphocytes % 19 % 03/13/16 07:43 Monocytes % 6 % 03/13/16 07:43 Eosinophils % 2 % 03/13/16 07:43 Basophils % 1 % 03/13/16 07:43 Neutrophils # 4.3 k/uL (1.3-7.7) 03/13/16 07:43 Lymphocytes # 1.2 k/uL (1.0-4.8) 03/13/16 07:43 Monocytes # 0.4 k/uL (0-1.0) 03/13/16 07:43 Eosinophils # 0.1 k/uL (0-0.7) 03/13/16 07:43 Basophils # 0.0 k/uL (0-0.2) 03/13/16 07:43 Hypochromasia Marked 03/13/16 07:43 Poikilocytosis Slight 03/13/16 07:43 Anisocytosis Slight 03/13/16 07:43 Macrocytosis Slight 03/13/16 07:43 PT 10.7 sec (9.0-12.0) 03/12/16 15:58 INR 1.1 (<1.1) 03/12/16 15:58 APTT 24.5 sec (22.0-30.0) 03/12/16 15:58 Sodium 141 mmol/L (137-145) 03/13/16 07:43 Potassium 4.4 mmol/L (3.5-5.1) 03/13/16 07:43 Chloride 114 mmol/L (98-107) H 03/13/16 07:43 Carbon Dioxide 21 mmol/L (22-30) L 03/13/16 07:43 Anion Gap 6 mmol/L 03/13/16 07:43 BUN 16 mg/dL (9-20) 03/13/16 07:43 Creatinine 1.30 mg/dL (0.66-1.25) H 03/13/16 07:43 Est GFR (MDRD) Af Amer >60 (>60 ml/min/1.73 sqM) 03/13/16 07:43 Est GFR (MDRD) Non-Af 56 (>60 ml/min/1.73 sqM) 03/13/16 07:43 Glucose 71 mg/dL (74-99) L 03/13/16 07:43 POC Glucose (mg/dL) 185 mg/dL (75-99) H 03/13/16 17:03 POC Glu Insole Tack Puller Hand ID Lida Rivera 03/13/16 17:03 Plasma Lactic Acid Edy 0.7 mmol/L (0.7-2.0) 03/12/16 15:27 Calcium 7.8 mg/dL (8.4-10.2) L 03/13/16 07:43 Total Bilirubin 0.2 mg/dL (0.2-1.3) 03/12/16 15:27 AST 15 U/L (17-59) L 03/12/16 15:27 ALT 27 U/L (21-72) 03/12/16 15:27 Alkaline Phosphatase 98 U/L (38-126) 03/12/16 15:27 Total Protein 5.5 g/dL (6.3-8.2) L 03/12/16 15:27 Albumin 2.5 g/dL (3.5-5.0) L 03/12/16 15:27 Stool Occult Blood Negative (Negative) 03/12/16 17:20 Blood Type O Negative 03/12/16 16:34 Blood Type Recheck No 03/12/16 16:34 Antibody Screen NEGATIVE 03/12/16 16:34 Crossmatch See Detail 03/12/16 16:34 Spec Expiration Date 03/15/16 23:59 03/12/16 16:34 Microbiology 03/12/16 15:27 Blood Blood Culture - Preliminary No Growth after 24 hours 03/13/16 01:30 Foot - Right Gram Stain - Preliminary 03/13/16 01:30 Foot - Right Wound Culture - Preliminary Assessment and Plan (1) Osteomyelitis of foot, right, acute Narrative/Plan: 60-year-old male with a many year history of diabetes presents to the hospital with ongoing difficulties it worse over the last 2 weeks to his right foot. He was self-medicating with iodine and bacitracin at home. The foot is now considerably worsened and has been seen by podiatry. Given the underlying significant infection to the first metatarsal head he has been suggested that surgical debridement of this area would be best with goal to save the rest of his foot and to save his leg. He seems to have little understanding about this process. He would like to just go home and continue to treat this as he has been. We try to again explained that this infection is severe. It is related the bony structures of the foot and have deformed further from the infection despite the Charcot foot. And without further surgical intervention he likely would have foot and leg loss. He could even lead to life loss. He seems we will do contemplate some further interventions at this point in time. For antibiotic therapy based on prior outpatient cultures vancomycin with piperacillin tazobactam are being utilized for now. As far as plan if he refuses surgical intervention would be difficult but if necessary could consider a course of outpatient antibiotic therapy. Status: Acute (2) Atherosclerosis of [place] arteries of the extremities with ulceration Status: Acute (3) Diabetic foot ulcer associated with type 2 diabetes mellitus Status: Acute
[2016-03-13 20:54] LABS: Glucose,Whole Blood 192 mg/dL (75-99)
[2016-03-13] MEDS ORDERED: DOXAZOSIN 4 MG TAB PO SCH (21:00)
[2016-03-13] MEDS: ATORVASTATIN 10 MG TAB PO SCH (21:54)
[2016-03-13] MEDS: FENOFIBRATE 160 MG TAB PO SCH (21:55)
[2016-03-13] MEDS: DOXAZOSIN 4 MG TAB PO SCH (21:55)
[2016-03-13] MEDS: MUPIROCIN 2% OINT 22 GM TUBE TOPICAL SCH (21:57)
[2016-03-14] MEDS: PIPERACILLIN-TAZOBACTAM 3.375 GM in DEXTROSE/WATER 1 50ML.BAG IVPB SCH ×4 (01:05→23:34)
[2016-03-14] MEDS: HYDROcodone/APAP 5-325MG 1 EACH TAB PO PRN ×4 (02:40→23:34)
[2016-03-14 07:22] LABS: Glucose,Whole Blood 90 mg/dL (75-99)
[2016-03-14] MEDS: INSULIN LISPRO (humaLOG) 300 UNIT/3 ML VIAL SQ SCH ×4 (07:40→21:44)
[2016-03-14] MEDS: glipiZIDE 10 MG TAB PO SCH (08:26)
[2016-03-14] MEDS: metFORMIN 500 MG TAB PO SCH ×2 (08:26→17:20)
[2016-03-14] MEDS: ALPRAZolam 0.5 MG TAB PO SCH ×2 (08:29→21:37)
[2016-03-14 09:18] LABS: Anisocytosis Slight; Basophils # (A) 0.1 k/uL (0-0.2); Basophils % (A) 1 %; CH 31.6; CHCM 32.9; Eosinophils # (A) 0.2 k/uL (0-0.7); Eosinophils % (A) 3 %; HCT 27.4 % (39.0-53.0); HDW 4.12; Hypochromasia Slight; Luc # (Auto) 0.24; Luc % (Auto) 4; Lymphocytes # (A) 1.4 k/uL (1.0-4.8); Lymphocytes % (A) 24 %; MCH 31.2 pg (25.0-35.0); MCHC 32.2 g/dL (31.0-37.0); MCV 96.7 fL (80.0-100.0); Mean Platelet Volume 7.3; Monocytes # (A) 0.4 k/uL (0-1.0); Monocytes % (A) 7 %; Neutrophils # (A) 3.6 k/uL (1.3-7.7); Neutrophils % (A) 61 %; Poikilocytosis Moderate; RBC 2.83 m/uL (4.30-5.90); RDW 16.4 % (11.5-15.5); WBC 5.9 k/uL (3.8-10.6); WBC (Perox) 5.91
[2016-03-14 09:19] LABS: HGB 8.8 gm/dL (13.0-17.5)
[2016-03-14] MEDS: NICOTINE 14MG/24HR PATCH TRANSDERM SCH (09:25)
[2016-03-14] MEDS: HEPARIN SODIUM,PORCINE 5,000 UNIT/ML 1 ML VIAL SQ SCH ×2 (09:25→21:38)
[2016-03-14] MEDS: ASPIRIN 325 MG TAB PO SCH (09:26)
[2016-03-14] MEDS: PANTOPRAZOLE 40 MG/10 ML VIAL IV SCH (09:26)
[2016-03-14] MEDS: amLODIPine 2.5 MG TAB PO SCH (09:26)
[2016-03-14] MEDS: GABAPENTIN 400 MG CAP PO SCH ×3 (09:26→21:39)
[2016-03-14 09:27] LABS: Anion Gap 7 mmol/L; Blood Urea Nitrogen 15 mg/dL (9-20); Calcium 8.1 mg/dL (8.4-10.2); Carbon Dioxide 22 mmol/L (22-30); Chloride 111 mmol/L (98-107); Glucose 110 mg/dL (74-99); Non-African American GFR(MDRD) 52 (>60 ml/min/1.73 sqM); Potassium 4.3 mmol/L (3.5-5.1); Sodium 140 mmol/L (137-145)
[2016-03-14] MEDS: SODIUM CHLORIDE 0.9% 1,000 ML IV SCH ×2 (09:27→21:47)
--- NOTE | 2016-03-14 11:16 | P.GSCN ---
History of Present Illness History of present illness: 60 white male, I was consulted for second opinion this patient has a infected right foot big toe on the plantar aspect with drainage pus and x-ray showed patient had ostial of the head of the metatarsal bone patient is under care of Dr. Roman he recommended to her amputation patient also was found to have a low hemoglobin and he he had 3 units of blood by February was still 8.9 there is no evidence of GI bleed we will recommend to have a hematology consult patient also is an IV antibiotic under care of Dr. Ahmadi patient wants to go home and for personal reasons he has to see his own family doctor if he goes home he will go AGAINST MEDICAL ADVICE me in Dr. Roman have discussed about 8 he does need surgical intervention Medical history history of diabetes hypertension hyperlipidemia Surgical history history of tonsillectomy On examination neck supple no bruit appreciated Chest clear auscultation first and second sound normal Abdomen soft nontender Vascular examination brachial radial pulses are palpable femorals are palpable posterior tibial dorsal pedis is not palpable there present but the Doppler patient has a swollen red with drainage of pus from the on the plantar aspect of the big toe most likely this gentleman has a Charcot foot Plan patient needs a hematology consult to be evaluated there is enough blood loss #2 patient needs a Doppler for vascular evaluation I have discuss with Dr. Roman about the surgical intervention patient definitely needs a ray amputation patient understands issue nonhealing and of dictation Past Medical History Past Medical History: Diabetes Mellitus, Hyperlipidemia, Hypertension, Osteoarthritis (OA) Additional Past Medical History / Comment(s): neuropathy. wound rt foot History of Any Multi-Drug Resistant Organisms: None Reported Past Surgical History: Tonsillectomy Additional Past Surgical History / Comment(s): cyst removed from testicle Past Anesthesia/Blood Transfusion Reactions: No Reported Reaction Past Psychological History: Anxiety Smoking Status: Current every day smoker Past Alcohol Use History: None Reported Past Drug Use History: None Reported - Past Family History Mother Family Medical History: Unable to Obtain Additional Family Medical History / Comment(s): adopted Medications and Allergies Home Medications Medication Instructions Recorded Confirmed Type Acetaminophen with Codeine 1 tab PO Q8H PRN 03/24/15 03/12/16 History [Tylenol w/codeine #3] Doxazosin [Cardura] 4 mg PO HS 03/24/15 03/12/16 History Ferrous Sulfate [Feosol] 325 mg PO BID 03/24/15 03/12/16 History Fluticasone Nasal [place] [Flonase 2 spray EA NOSTRIL DAILY PRN 03/24/15 03/12/16 History Nasal [place]] Gabapentin 800 mg PO TID 03/24/15 03/12/16 History Simvastatin [Zocor] 20 mg PO HS 03/24/15 03/12/16 History amLODIPine [Norvasc] 2.5 mg PO DAILY 03/24/15 03/12/16 History glipiZIDE [Glucotrol] 10 mg PO DAILY 03/24/15 03/12/16 History metFORMIN HCL [Glucophage] 500 mg PO BID-W/MEALS 03/24/15 03/12/16 History ALPRAZolam [Xanax] 1 mg PO BID 04/21/15 03/12/16 History SILVER sulfADIAZINE CREAM 1 applic TOPICAL HS 04/21/15 03/12/16 History [Silvadene Cream] Aspirin EC [Ecotrin] 325 mg PO DAILY 03/08/16 03/12/16 History Fenofibrate [Lofibra] 160 mg PO HS 03/08/16 03/12/16 History Mupirocin [Mupirocin 2%] 1 applic TOPICAL HS 03/08/16 03/12/16 History Allergies Allergy/AdvReac Type Severity Reaction Status Date / Time No Known Allergies Allergy Verified 03/12/16 16:31 Surgical - Exam Vital Signs Temp Pulse Resp BP Pulse Ox 97.8 F 94 18 135/62 99 03/12/16 13:11 03/12/16 13:11 03/12/16 13:11 03/12/16 13:11 03/12/16 13:11 Results - Labs 03/14/16 08:33 03/14/16 08:33 Abnormal Lab Results - Last 24 Hours (Table) 03/13/16 03/13/16 03/14/16 Range/Units 17:03 20:41 08:33 RBC (4.30-5.90) m/uL Hgb (13.0-17.5) gm/dL Hct (39.0-53.0) % RDW (11.5-15.5) % Plt Count (150-450) k/uL Chloride 111 H (98-107) mmol/L Creatinine 1.40 H (0.66-1.25) mg/dL Glucose 110 H (74-99) mg/dL POC Glucose (mg/dL) 185 H 192 H (75-99) mg/dL Calcium 8.1 L (8.4-10.2) mg/dL 03/14/16 Range/Units 08:33 RBC 2.83 L (4.30-5.90) m/uL Hgb 8.8 L D (13.0-17.5) gm/dL Hct 27.4 L (39.0-53.0) % RDW 16.4 H (11.5-15.5) % Plt Count 521 H (150-450) k/uL Chloride (98-107) mmol/L Creatinine (0.66-1.25) mg/dL Glucose (74-99) mg/dL POC Glucose (mg/dL) (75-99) mg/dL Calcium (8.4-10.2) mg/dL Microbiology - Last 24 Hours (Table) 03/13/16 01:30 Gram Stain - Preliminary Foot - Right Wound Culture - Preliminary Gram Neg Bacilli Diabetes panel 03/14/16 Range/Units 08:33 Sodium 140 (137-145) mmol/L Potassium 4.3 (3.5-5.1) mmol/L Chloride 111 H (98-107) mmol/L Carbon Dioxide 22 (22-30) mmol/L BUN 15 (9-20) mg/dL Creatinine 1.40 H (0.66-1.25) mg/dL Glucose 110 H (74-99) mg/dL Calcium 8.1 L (8.4-10.2) mg/dL Calcium panel 03/14/16 Range/Units 08:33 Calcium 8.1 L (8.4-10.2) mg/dL Pituitary panel 03/14/16 Range/Units 08:33 Sodium 140 (137-145) mmol/L Potassium 4.3 (3.5-5.1) mmol/L Chloride 111 H (98-107) mmol/L Carbon Dioxide 22 (22-30) mmol/L BUN 15 (9-20) mg/dL Creatinine 1.40 H (0.66-1.25) mg/dL Glucose 110 H (74-99) mg/dL Calcium 8.1 L (8.4-10.2) mg/dL Adrenal panel 03/14/16 Range/Units 08:33 Sodium 140 (137-145) mmol/L Potassium 4.3 (3.5-5.1) mmol/L Chloride 111 H (98-107) mmol/L Carbon Dioxide 22 (22-30) mmol/L BUN 15 (9-20) mg/dL Creatinine 1.40 H (0.66-1.25) mg/dL Glucose 110 H (74-99) mg/dL Calcium 8.1 L (8.4-10.2) mg/dL
--- NOTE | 2016-03-14 11:54 | P.CON ---
Consult Note - . Consult date: 03/14/16 Assessment/Plan:: Subjective: Patient seen at bedside for follow-up consultation and treatment of osteomyelitis acute right foot. Patient refused arterial Doppler yesterday and is continuing to refuse surgical intervention to remove infected bone and tissue via amputation partial first ray right foot. Otherwise patient states he 's resting comfortably. He does have complaint of constipation. She states he needs to go home on Tuesday to take care of a personal home residence rental issue. He also states he would like to consult with his primary care doctor before proceeding with any surgical intervention. Patient states he is aware of complications of this bone infection. He is aware that the infection can continue to progress and result in further loss of additional tissue and the foot , limb, leg or even loss of life due to the infection spreading systemically to heart or other organs. Objective: Patient has decreased erythema decrease edema decreased pain of the right foot. He continues to have an ulceration dorsal medially with a new ulceration just inferior less than 1 mm in diameter through the dermis. There is minimal necrotic tissue and minimal purulence. There is decreased temperature to the foot. Pedal pulses are diminished. Review of triphasic bone scan is positive for acute osteomyelitis. Patient's hemoglobin levels have been elevated but are still low. Assessment: Acute osteomyelitis right foot with below systemic conditions. Plan: Exam. Today again we had an at length discussion with the patient regarding amputation partial of the right foot. Patient was advised that this in my opinion is the best option to expediently healing as well as minimize risk of further medical complications. Patient was told of loss of limb leg or life with complications due to this infection. Today we again flushed the wound copiously with 300 mL of sterile saline and packed the wound with iodoform gauze dry sterile dressing. We'll continue to have this done daily while the patient is in-house for treatment. We have advised patient to follow through with the arterial Doppler so we can assess healing potential. Patient was told if the arterial Doppler shows insignificant flow and he would possibly need vascular intervention. We discussed with patient proper treatment of this infection would require use of IV antibiotics and/or orals which would be left to the infectious disease doctor. We will notify the attending staff of his complaint of constipation for treatment. We did discuss with patient being discharged AGAINST MEDICAL ADVICE if he refuses to follow reasonable medical recommendations. We'll continue to follow for this consult Past Medical History Past Medical History: Diabetes Mellitus, Hyperlipidemia, Hypertension, Osteoarthritis (OA) Additional Past Medical History / Comment(s): neuropathy. wound rt foot History of Any Multi-Drug Resistant Organisms: None Reported Past Surgical History: Tonsillectomy Additional Past Surgical History / Comment(s): cyst removed from testicle Past Anesthesia/Blood Transfusion Reactions: No Reported Reaction Past Psychological History: Anxiety Smoking Status: Current every day smoker Past Alcohol Use History: None Reported Past Drug Use History: None Reported - Past Family History Mother Family Medical History: Unable to Obtain Additional Family Medical History / Comment(s): adopted Medications and Allergies Home Medications Medication Instructions Recorded Confirmed Type Acetaminophen with Codeine 1 tab PO Q8H PRN 03/24/15 03/12/16 History [Tylenol w/codeine #3] Doxazosin [Cardura] 4 mg PO HS 03/24/15 03/12/16 History Ferrous Sulfate [Feosol] 325 mg PO BID 03/24/15 03/12/16 History Fluticasone Nasal [place] [Flonase 2 spray EA NOSTRIL DAILY PRN 03/24/15 03/12/16 History Nasal [place]] Gabapentin 800 mg PO TID 03/24/15 03/12/16 History Simvastatin [Zocor] 20 mg PO HS 03/24/15 03/12/16 History amLODIPine [Norvasc] 2.5 mg PO DAILY 03/24/15 03/12/16 History glipiZIDE [Glucotrol] 10 mg PO DAILY 03/24/15 03/12/16 History metFORMIN HCL [Glucophage] 500 mg PO BID-W/MEALS 03/24/15 03/12/16 History ALPRAZolam [Xanax] 1 mg PO BID 04/21/15 03/12/16 History SILVER sulfADIAZINE CREAM 1 applic TOPICAL HS 04/21/15 03/12/16 History [Silvadene Cream] Aspirin EC [Ecotrin] 325 mg PO DAILY 03/08/16 03/12/16 History Fenofibrate [Lofibra] 160 mg PO HS 03/08/16 03/12/16 History Mupirocin [Mupirocin 2%] 1 applic TOPICAL HS 03/08/16 03/12/16 History Allergies Allergy/AdvReac Type Severity Reaction Status Date / Time No Known Allergies Allergy Verified 03/12/16 16:31 Surgical - Exam Vital Signs Temp Pulse Resp BP Pulse Ox 97.8 F 94 18 135/62 99 03/12/16 13:11 03/12/16 13:11 03/12/16 13:11 03/12/16 13:11 03/12/16 13:11 Results - Labs 03/14/16 08:33 03/14/16 08:33 Abnormal Lab Results - Last 24 Hours (Table) 03/13/16 03/13/16 03/14/16 Range/Units 17:03 20:41 08:33 RBC (4.30-5.90) m/uL Hgb (13.0-17.5) gm/dL Hct (39.0-53.0) % RDW (11.5-15.5) % Plt Count (150-450) k/uL Chloride 111 H (98-107) mmol/L Creatinine 1.40 H (0.66-1.25) mg/dL Glucose 110 H (74-99) mg/dL POC Glucose (mg/dL) 185 H 192 H (75-99) mg/dL Calcium 8.1 L (8.4-10.2) mg/dL 03/14/16 Range/Units 08:33 RBC 2.83 L (4.30-5.90) m/uL Hgb 8.8 L D (13.0-17.5) gm/dL Hct 27.4 L (39.0-53.0) % RDW 16.4 H (11.5-15.5) % Plt Count 521 H (150-450) k/uL Chloride (98-107) mmol/L Creatinine (0.66-1.25) mg/dL Glucose (74-99) mg/dL POC Glucose (mg/dL) (75-99) mg/dL Calcium (8.4-10.2) mg/dL Microbiology - Last 24 Hours (Table) 03/13/16 01:30 Gram Stain - Preliminary Foot - Right Wound Culture - Preliminary Gram Neg Bacilli Diabetes panel 03/14/16 Range/Units 08:33 Sodium 140 (137-145) mmol/L Potassium 4.3 (3.5-5.1) mmol/L Chloride 111 H (98-107) mmol/L Carbon Dioxide 22 (22-30) mmol/L BUN 15 (9-20) mg/dL Creatinine 1.40 H (0.66-1.25) mg/dL Glucose 110 H (74-99) mg/dL Calcium 8.1 L (8.4-10.2) mg/dL Calcium panel 03/14/16 Range/Units 08:33 Calcium 8.1 L (8.4-10.2) mg/dL Pituitary panel 03/14/16 Range/Units 08:33 Sodium 140 (137-145) mmol/L Potassium 4.3 (3.5-5.1) mmol/L Chloride 111 H (98-107) mmol/L Carbon Dioxide 22 (22-30) mmol/L BUN 15 (9-20) mg/dL Creatinine 1.40 H (0.66-1.25) mg/dL Glucose 110 H (74-99) mg/dL Calcium 8.1 L (8.4-10.2) mg/dL Adrenal panel 03/14/16 Range/Units 08:33 Sodium 140 (137-145) mmol/L Potassium 4.3 (3.5-5.1) mmol/L Chloride 111 H (98-107) mmol/L Carbon Dioxide 22 (22-30) mmol/L BUN 15 (9-20) mg/dL Creatinine 1.40 H (0.66-1.25) mg/dL Glucose 110 H (74-99) mg/dL Calcium 8.1 L (8.4-10.2) mg/dL
[2016-03-14 11:59] LABS: Hemoglobin A1C 5.4 % (4.2-6.1)
[2016-03-14 12:05] LABS: Glucose,Whole Blood 53 mg/dL (75-99)
--- NOTE | 2016-03-14 12:06 | PN ---
DATE OF SERVICE: 03/13/2016 This 60-year-old gentleman who was admitted with acute diabetic foot with failure of outpatient treatment also has features of osteomyelitis on nuclear scan. The patient was seen by Dr. Roman as well as Dr. Ahmadi, who recommended surgical debridement. The patient also has Charcot foot also. The patient is being closely monitored. At this time the patient is on broad spectrum IV antibiotics. Final cultures are pending at this time. REVIEW OF SYSTEMS: CARDIOVASCULAR: No angina or palpitations. LUNGS: Breath sounds are diminished. GI: As mentioned. : No symptoms. NERVOUS SYSTEM: No numbness or weakness. Current medications are reviewed and include: 1. [place] 5 mg 6 hours p.r.n. 2. Xanax 0.5 t.i.d. 3. Norvasc 2.5 mg. 4. Aspirin 325 mg daily. 5. Lipitor 10 mg every 6. 6. Cardura. 7. Lofibra. 8. Iron sulfate. 9. Neurontin. 10. Glucotrol. 11. Heparin. 12. Glucovance. 13. Multivitamin. 14. Bactroban. 15. Narcan. 16. Habitrol 14. 17. Zosyn. 18. Zestril. 19. Vancomycin. PHYSICAL EXAMINATION: GENERAL: The patient is alert, oriented x3. VITAL SIGNS: Pulse 87, blood pressure 170/74, respirations 18, temperature 97.4, pulse ox 97% on room air. HEENT: Conjunctivae normal. NECK: No JVD. CARDIOVASCULAR: S1 and S2 muffled. LUNGS: Breath sounds are diminished at the bases. Few scattered rhonchi and crackles. ABDOMEN: Soft, nontender. No masses palpable. EXTREMITIES: Right foot swelling. NERVOUS SYSTEM: No focal deficits. Hemoglobin 6.2, two more units transfusion is being arranged at this time. Otherwise creatinine 1.30. ASSESSMENT: 1. Acute diabetic foot of the right foot with acute osteomyelitis with failure of outpatient treatment. 2. Charcot foot on the right. 3. Anemia, macrocytic, possibly nutritional, status post transfusion, present on admission. 4. Increased platelets. 5. History of noncompliance. 6. Increased creatinine with mild chronic kidney disease, stage II. 7. Diabetic mellitus type 2. 8. Diabetic peripheral neuropathy. 9. Hypoalbuminemia with mild to moderate protein calorie malnutrition. 10. Hypercalcemia. 11. Hypertension. 12. Hyperlipidemia. 13. History of degenerative joint disease. 14. History of peripheral neuropathy. 15. History of anxiety. 16. Continued ongoing nicotine dependence. 17. Full code. RECOMMENDATION: In this 60-year-old gentleman who presented with multiple complex medical issues, we will monitor the patient closely, continue current medications and continue current treatment. Continue broad spectrum IV antibiotics. Continue transfusions. Repeat labs. Nuclear scan reviewed. Otherwise closely follow with Dr. Ahmadi as well as Dr. Roman. Possible debridement. Guarded prognosis. Further recommendations to follow.
[2016-03-14 12:26] LABS: Glucose,Whole Blood 61 mg/dL (75-99)
[2016-03-14 12:46] LABS: Glucose,Whole Blood 67 mg/dL (75-99)
[2016-03-14 13:03] LABS: Glucose,Whole Blood 52 mg/dL (75-99)
[2016-03-14] MEDS: MULTIVITAMINS, THERA 1 EACH TAB PO SCH (13:06)
[2016-03-14] MEDS: FERROUS SULFATE 325 MG TAB PO SCH ×2 (13:06→17:54)
[2016-03-14] MEDS: VANCOMYCIN 1,250 MG in SODIUM CHLORIDE 0.9% 250 ML IVPB SCH (13:06)
[2016-03-14 13:24] LABS: Glucose,Whole Blood 65 mg/dL (75-99)
[2016-03-14 14:07] LABS: Glucose,Whole Blood 103 mg/dL (75-99)
[2016-03-14] MEDS ORDERED: SENNOSIDES 8.6 MG TAB PO PRN (16:13)
[2016-03-14 17:14] LABS: Glucose,Whole Blood 91 mg/dL (75-99)
[2016-03-14] MEDS: FENOFIBRATE 160 MG TAB PO SCH (21:37)
[2016-03-14] MEDS: DOXAZOSIN 4 MG TAB PO SCH (21:38)
[2016-03-14] MEDS: MUPIROCIN 2% OINT 22 GM TUBE TOPICAL SCH (21:38)
[2016-03-14] MEDS: ATORVASTATIN 10 MG TAB PO SCH (21:38)
[2016-03-14] MEDS: DOCUSATE 100 MG CAP PO SCH (21:38)
[2016-03-14 21:49] LABS: Glucose,Whole Blood 131 mg/dL (75-99)
--- NOTE | 2016-03-15 00:11 | P.PN ---
Subjective Principal diagnosis: diabetic foot infection 60-year-old male with a long-standing history of diabetes mellitus who is developed significant ulcerations to his feet in the past. He has prior toe amputation. Is referred to infectious disease regarding the abnormalities to the right foot second toe. X-rays and scans reveal evidence of osteomyelitis to the distal tuft. The patient however at this time has no active ulceration. He has been followed by an outside electrical design technologist for quite some time. They're one point in time amputation of the distal tuft was recommended. However the ulceration was healed over time and antibiotic therapy. Although the foot remained markedly deformed in its shape. He has a history of Charcot foot. And with his neuropathy was not concerned by the changes that were occurring. He is now been seen by his electrical design technologist recently. There is open ulcerations to the medial aspect of the first metatarsal head. There is gross deformity to the region. There is evidence of underlying osteomyelitis. As well as ascending infection. No showing some improvement with antibiotic therapy. The patient has been advised for amputation to this destroyed area. Which he is declining at this time. Patient relates he wants to go to talk to his primary care physician first. May be he has other doctors to refer him to to potentially give him a different diagnosis. With this of course the patient has little understanding of his disease state. We discussed the potential for foot limb and life loss. Still relates that he'll go talk to his primary care physician. He has business to take care of outside of the Hospital tomorrow. In the very unhappy is not able to smoke. Objective - Vital Signs Vital signs: Vital Signs Temp 97.7 F 03/14/16 15:00 Pulse 90 03/14/16 15:00 Resp 18 03/14/16 15:00 BP 139/72 03/14/16 15:00 Pulse Ox 97 03/14/16 15:00 Intake & Output 03/14/16 03/14/16 03/15/16 06:59 18:59 06:59 Intake Total 1630 350 Balance 1630 350 Intake: IV 450 350 Piperacillin-Tazobactam 3 50 50 .375 gm In Dextrose/Water 1 50ml.bag @ 12.5 mls/hr IVPB Q8HR [facility] Rx#: [id number] Sodium Chloride 0.9% 1, 150 300 000 ml @ 75 mls/hr IV . [id number] [facility] Rx#:[id number] Vancomycin 1,250 mg In 250 Sodium Chloride 0.9% 250 ml @ 125 mls/hr IVPB DAILY [facility] Rx#:[id number] Intake, IV Titration 250 Amount Vancomycin 1,250 mg In 250 Sodium Chloride 0.9% 250 ml @ 125 mls/hr IVPB Q24H [facility] Rx#:[id number] Blood Product 930 Rc Pheresis 2 As3 Unit 310 [id number] Other: # Voids 1 4 # Bowel Movements 1 2 - Exam HEENT: Anicteric conjunctiva are pink and moist nasal mucosa grossly intact without significant lesions, there is no thrush. Her dentition Neck: The neck is supple without significant lymphadenopathy or thyromegaly. Lungs: Symmetrical air entry with few expiratory wheezes Heart: Without any murmur Abdomen: Positive bowel sounds soft and nontender without palpable masses or organomegaly. There was no guarding or rebound. Extremities: The upper extremities failed to reveal evidence of any lesions. The left foot plantar has a chronic calluses which he is protecting with foam pads. Right foot shows evidence of the marked abnormality to the first metatarsal head especially medial surface. There is open ulceration. There is palpable bone at the base of the ulceration. There is purulent drainage. There is dense erythema on the foot around the great toe on the dorsum of the foot also. Does not penetrate much above the ankle at this time. There is no cervical lymphadenopathy into the right groin. No other abnormal lymph nodes are noted Neuro: Awake alert oriented to person place and time. He has markedly diminished sensation over both feet from the ankle distal. Patient appears to have some difficulties with processing information. - Labs CBC & Chem 7: 03/14/16 08:33 03/14/16 08:33 Labs: Abnormal Lab Results - Last 24 Hours (Table) 03/14/16 03/14/16 03/14/16 Range/Units 08:33 08:33 11:59 RBC 2.83 L (4.30-5.90) m/uL Hgb 8.8 L D (13.0-17.5) gm/dL Hct 27.4 L (39.0-53.0) % RDW 16.4 H (11.5-15.5) % Plt Count 521 H (150-450) k/uL Chloride 111 H (98-107) mmol/L Creatinine 1.40 H (0.66-1.25) mg/dL Glucose 110 H (74-99) mg/dL POC Glucose (mg/dL) 53 L (75-99) mg/dL Calcium 8.1 L (8.4-10.2) mg/dL 03/14/16 03/14/16 03/14/16 Range/Units 12:24 12:43 13:01 RBC (4.30-5.90) m/uL Hgb (13.0-17.5) gm/dL Hct (39.0-53.0) % RDW (11.5-15.5) % Plt Count (150-450) k/uL Chloride (98-107) mmol/L Creatinine (0.66-1.25) mg/dL Glucose (74-99) mg/dL POC Glucose (mg/dL) 61 L 67 L 52 L (75-99) mg/dL Calcium (8.4-10.2) mg/dL 03/14/16 03/14/16 03/14/16 Range/Units 13:23 13:47 21:31 RBC (4.30-5.90) m/uL Hgb (13.0-17.5) gm/dL Hct (39.0-53.0) % RDW (11.5-15.5) % Plt Count (150-450) k/uL Chloride (98-107) mmol/L Creatinine (0.66-1.25) mg/dL Glucose (74-99) mg/dL POC Glucose (mg/dL) 65 L 103 H 131 H (75-99) mg/dL Calcium (8.4-10.2) mg/dL Microbiology - Last 24 Hours (Table) 03/13/16 01:30 Gram Stain - Preliminary Foot - Right Wound Culture - Preliminary Gram Neg Bacilli Laboratory Results WBC 5.9 k/uL (3.8-10.6) 03/14/16 08:33 RBC 2.83 m/uL (4.30-5.90) L 03/14/16 08:33 Hgb 8.8 gm/dL (13.0-17.5) L D 03/14/16 08:33 Hct 27.4 % (39.0-53.0) L 03/14/16 08:33 MCV 96.7 fL (80.0-100.0) 03/14/16 08:33 MCH 31.2 pg (25.0-35.0) 03/14/16 08:33 MCHC 32.2 g/dL (31.0-37.0) 03/14/16 08:33 RDW 16.4 % (11.5-15.5) H 03/14/16 08:33 Plt Count 521 k/uL (150-450) H 03/14/16 08:33 Neutrophils % 61 % 03/14/16 08:33 Lymphocytes % 24 % 03/14/16 08:33 Monocytes % 7 % 03/14/16 08:33 Eosinophils % 3 % 03/14/16 08:33 Basophils % 1 % 03/14/16 08:33 Neutrophils # 3.6 k/uL (1.3-7.7) 03/14/16 08:33 Lymphocytes # 1.4 k/uL (1.0-4.8) 03/14/16 08:33 Monocytes # 0.4 k/uL (0-1.0) 03/14/16 08:33 Eosinophils # 0.2 k/uL (0-0.7) 03/14/16 08:33 Basophils # 0.1 k/uL (0-0.2) 03/14/16 08:33 Hypochromasia Slight 03/14/16 08:33 Poikilocytosis Moderate 03/14/16 08:33 Anisocytosis Slight 03/14/16 08:33 Macrocytosis Slight 03/13/16 07:43 PT 10.7 sec (9.0-12.0) 03/12/16 15:58 INR 1.1 (<1.1) 03/12/16 15:58 APTT 24.5 sec (22.0-30.0) 03/12/16 15:58 Sodium 140 mmol/L (137-145) 03/14/16 08:33 Potassium 4.3 mmol/L (3.5-5.1) 03/14/16 08:33 Chloride 111 mmol/L (98-107) H 03/14/16 08:33 Carbon Dioxide 22 mmol/L (22-30) 03/14/16 08:33 Anion Gap 7 mmol/L 03/14/16 08:33 BUN 15 mg/dL (9-20) 03/14/16 08:33 Creatinine 1.40 mg/dL (0.66-1.25) H 03/14/16 08:33 Est GFR (MDRD) Af Amer >60 (>60 ml/min/1.73 sqM) 03/14/16 08:33 Est GFR (MDRD) Non-Af 52 (>60 ml/min/1.73 sqM) 03/14/16 08:33 Glucose 110 mg/dL (74-99) H 03/14/16 08:33 POC Glucose (mg/dL) 131 mg/dL (75-99) H 03/14/16 21:31 POC Glu Heater Room Helper Daniella Robert 03/14/16 21:[address] Glu mg/dL 108 mg/dL 03/12/16 15:27 Hemoglobin A1c 5.4 % (4.2-6.1) 03/12/16 15:27 Plasma Lactic Acid Edy 0.7 mmol/L (0.7-2.0) 03/12/16 15:27 Calcium 8.1 mg/dL (8.4-10.2) L 03/14/16 08:33 Total Bilirubin 0.2 mg/dL (0.2-1.3) 03/12/16 15:27 AST 15 U/L (17-59) L 03/12/16 15:27 ALT 27 U/L (21-72) 03/12/16 15:27 Alkaline Phosphatase 98 U/L (38-126) 03/12/16 15:27 Total Protein 5.5 g/dL (6.3-8.2) L 03/12/16 15:27 Albumin 2.5 g/dL (3.5-5.0) L 03/12/16 15:27 Stool Occult Blood Negative (Negative) 03/12/16 17:20 Blood Type O Negative 03/12/16 16:34 Blood Type Recheck No 03/12/16 16:34 Antibody Screen NEGATIVE 03/12/16 16:34 Crossmatch See Detail 03/12/16 16:34 Spec Expiration Date 03/15/16 23:59 03/12/16 16:34 Microbiology 03/12/16 15:27 Blood Blood Culture - Preliminary No Growth after 48 hours 03/13/16 01:30 Foot - Right Gram Stain - Preliminary 03/13/16 01:30 Foot - Right Wound Culture - Preliminary Gram Neg Bacilli Assessment and Plan (1) Osteomyelitis of foot, right, acute Narrative/Plan: 60-year-old male with a many year history of diabetes presents to the hospital with ongoing difficulties it worse over the last 2 weeks to his right foot. He was self-medicating with iodine and bacitracin at home. The foot is now considerably worsened and has been seen by podiatry. Given the underlying significant infection to the first metatarsal head he has been suggested that surgical debridement of this area would be best with goal to save the rest of his foot and to save his leg. He seems to have little understanding about this process. He would like to just go home and continue to treat this as he has been. We try to again explained that this infection is severe. It is related the bony structures of the foot and have deformed further from the infection despite the Charcot foot. And without further surgical intervention he likely would have foot and leg loss. He could even lead to life loss. He seems we will do contemplate some further interventions at this point in time. For antibiotic therapy based on prior outpatient cultures vancomycin with piperacillin tazobactam are being utilized for now. As far as plan if he refuses surgical intervention would be difficult but if necessary could consider a course of outpatient antibiotic therapy The patient apparently will be leaving the hospital in the morning. He may allow an arterial Doppler to be performed. He was to go see his primary care physician for further input before he makes any further decisions. He is aware that his primary care physician has handed his care over to the hospitalist while he is in the hospital. This however does not satisfy him. He has significant difficulty in understanding his current situation. If he leaving the hospital AMA will not be provide him with intravenous antibiotic therapy. However oral antibiotic therapy with ciprofloxacin has been sent to his pharmacy so he will have some antibiotic therapy for the gram-negative bacteria that has been found in his foot. He can is instructed that is important that he stays in the hospital, received antibiotic therapy and surgical care to his foot. Status: Acute (2) Atherosclerosis of [place] arteries of the extremities with ulceration Status: Acute (3) Diabetic foot ulcer associated with type 2 diabetes mellitus Status: Acute
[2016-03-15 07:30] LABS: Glucose,Whole Blood 120 mg/dL (75-99)
[2016-03-15 07:35] VITALS: BP 145/67; PULSE 76; RESP 20; TEMP 97.8
[2016-03-15] MEDS: ASPIRIN 325 MG TAB PO SCH (07:54)
[2016-03-15] MEDS: PANTOPRAZOLE 40 MG/10 ML VIAL IV SCH (07:54)
[2016-03-15] MEDS: glipiZIDE 10 MG TAB PO SCH (07:54)
[2016-03-15] MEDS: HEPARIN SODIUM,PORCINE 5,000 UNIT/ML 1 ML VIAL SQ SCH (07:54)
[2016-03-15] MEDS: DOCUSATE 100 MG CAP PO SCH (07:54)
[2016-03-15] MEDS: GABAPENTIN 400 MG CAP PO SCH (07:54)
[2016-03-15] MEDS: metFORMIN 500 MG TAB PO SCH (07:55)
[2016-03-15] MEDS: NICOTINE 14MG/24HR PATCH TRANSDERM SCH (07:55)
[2016-03-15] MEDS: INSULIN LISPRO (humaLOG) 300 UNIT/3 ML VIAL SQ SCH (07:55)
[2016-03-15] MEDS: PIPERACILLIN-TAZOBACTAM 3.375 GM in DEXTROSE/WATER 1 50ML.BAG IVPB SCH (07:55)
[2016-03-15] MEDS: amLODIPine 2.5 MG TAB PO SCH (07:56)
[2016-03-15] MEDS: ALPRAZolam 0.5 MG TAB PO SCH (07:56)
[2016-03-15] MEDS: HYDROcodone/APAP 5-325MG 1 EACH TAB PO PRN (08:02)
[2016-03-15] MEDS ORDERED: VANCOMYCIN TROUGH DUE 1 EACH MISC MISCELLANE ONE (11:00)
[2016-03-15 11:35] LABS: Anisocytosis Slight; Basophils # (A) 0.1 k/uL (0-0.2); Basophils % (A) 1 %; CH 31.3; CHCM 32.1; Eosinophils # (A) 0.1 k/uL (0-0.7); Eosinophils % (A) 3 %; HCT 28.3 % (39.0-53.0); HDW 3.75; HGB 8.9 gm/dL (13.0-17.5); Hypochromasia Moderate; Luc # (Auto) 0.19; Luc % (Auto) 4; Lymphocytes # (A) 1.5 k/uL (1.0-4.8); Lymphocytes % (A) 28 %; MCH 30.9 pg (25.0-35.0); MCHC 31.6 g/dL (31.0-37.0); Macrocytosis Slight; Mean Platelet Volume 7.3; Monocytes # (A) 0.4 k/uL (0-1.0); Monocytes % (A) 8 %; Neutrophils # (A) 3.1 k/uL (1.3-7.7); Neutrophils % (A) 58 %; Poikilocytosis Slight; RBC 2.88 m/uL (4.30-5.90); RDW 16.2 % (11.5-15.5); WBC 5.4 k/uL (3.8-10.6); WBC (Perox) 5.69
[2016-03-15 12:03] LABS: Calcium 8.5 mg/dL (8.4-10.2); Potassium 4.7 mmol/L (3.5-5.1)
--- NOTE | 2016-03-15 15:20 | PN ---
DATE OF SERVICE: 03/14/2016 This is a 60-year-old gentleman who was admitted with acute diabetic foot also had features of osteomyelitis. Dr. Ahmadi, Dr. Beltre, are following the patient closely. The patient otherwise, please refer to infectious disease and Dr. Beltre notes for discussion regarding planned surgery. The patient's reluctance to undergo the same. The patient being closely monitored. No chest pain or palpitation. No fever. On exam, alert and oriented x3. Pulse 90, blood pressure 139/72, respirations 18. Temperature 97.7. Pulse 97% on room air. HEENT: Conjunctivae normal. NECK: No jugular venous distention. CARDIOVASCULAR: S1, S2 muffled. RESPIRATORY: Breath sounds diminished at the bases. A few scattered rhonchi, no crackles. ABDOMEN: Soft, nontender. LEGS: No edema. No swelling. Nervous system: No focal deficits. LABS: Hemoglobin 8.8. ASSESSMENT: 1. Acute diabetic foot of the right with acute osteomyelitis with failure of outpatient treatment. 2. Charcot foot on the right. 3. Anemia, macrocytic, possibly nutritional. Status post transfusion present on admission. 4. Increased platelets. 5. History of noncompliance. 6. History of chronic anemia. 7. Increased creatinine with chronic kidney disease, stage II. 8. Diabetes mellitus type 2. 9. Diabetic peripheral neuropathy. 10. Hypoalbuminemia with mild to moderate protein calorie malnutrition. 11. Hypercalcemia. 12. Hypertension. 13. Hyperlipidemia. 14. History degenerative joint disease. 15. History of peripheral neuropathy. 16. History of anxiety. 17. Continued ongoing nicotine dependence. 18. FULL CODE. ASSESSMENT: In this 60-year-old gentleman who presented with the multiple complex medical issues, we will monitor the patient closely. Continue the current medications. Continue symptomatic treatment. Otherwise, closely follow with multiple consultants. Continue antibiotics. Prognosis guarded because of multiple complex medical issues. Further recommendations to follow. Discussed with the patient, understands and agrees. See orders for details. MTDD
--- NOTE | 2016-03-16 19:59 | DS ---
DATE OF ADMISSION: 03/12/2016 DATE OF DISCHARGE: 03/15/2016 FINAL DIAGNOSIS(ES): 1. Acute diabetic foot on the right-sided with acute osteomyelitis with failure of outpatient treatment. 2. Charcot foot on the right side. 3. Anemia, macrocytic, possibly nutritional, status post transfusions, present on admission. 4. Increased platelets. 5. History of noncompliance. 6. History of chronic anemia. 7. Increased creatinine with chronic kidney disease Stage II. 8. Type 2 diabetes mellitus. 9. Diabetic peripheral neuropathy. 10. Hypoalbuminemia with mild to moderate protein calorie malnutrition. 11. Hypercalcemia. 12. Hypertension. 13. Hyperlipidemia. 14. History of degenerative joint disease. 15. History of peripheral neuropathy. 16. History of anxiety. 17. Continued ongoing nicotine dependence. 18. FULL CODE. DISCHARGE DISPOSITION: The patient left the hospital AGAINST MEDICAL ADVICE. HISTORY OF PRESENT ILLNESS: This 60- year-old gentleman with a past medical history of multiple medical problems admitted with diabetic foot and as well as osteomyelitis. The patient was treated with IV antibiotics. However, the patient was . Surgery was recommended for the patient, however, the patient not willing for the same. Please refer to the seen by multiple consultants including Dr. Beltre, Dr. Roman and Dr. Ahmadi. Please refer to consultants notes for further details. The patient also had left the hospital AGAINST MEDICAL ADVICE . Prognosis remained guarded throughout hospital stay, please refer to the previous dictations for further details. MTDD
--- NOTE | 2016-03-24 10:40 | P.ARTDOP ---
Arterial Doppler LOWER EXTREMITY ARTERIAL DOPPLER: DATE OF SERVICE: 03/15/2016 Reason for study: Bilateral foot ulcers. Doppler waveforms: Multiphasic bilaterally throughout. Pulse volume recording: []. Pressure gradients: None. Ankle-brachial indices: Greater than 1 bilaterally. Toe pressures: 93 on the right, 109 on the left Impression: Essentially normal study.
== END 2016-03-15 12:53 | disposition left against medical advice (07) | DRG 638 ==
LOC: EC 12:33 → 4MS4W 17:30
PROVIDERS: ADMIT Hospitalist; ATTEND Hospitalist
PROC: 30233N1 Transfusion of Nonautologous Red Blood Cells into Peripheral Vein, Percutaneous Approach (ICD-10-PCS; principal; 2016-03-13)
DX: E11.69 Type 2 diabetes mellitus with other specified complication (principal); M86.171 Other acute osteomyelitis, right ankle and foot; E11.22 Type 2 diabetes mellitus with diabetic chronic kidney disease; E11.42 Type 2 diabetes mellitus with diabetic polyneuropathy; E11.621 Type 2 diabetes mellitus with foot ulcer; E44.0 Moderate protein-calorie malnutrition; E83.51 Hypocalcemia; L03.115 Cellulitis of right lower limb; D53.9 Nutritional anemia, unspecified; E11.51 Type 2 diabetes mellitus with diabetic peripheral angiopathy without gangrene; E11.610 Type 2 diabetes mellitus with diabetic neuropathic arthropathy; E78.5 Hyperlipidemia, unspecified; F17.200 Nicotine dependence, unspecified, uncomplicated; Z79.84 Long term (current) use of oral hypoglycemic drugs; Z79.899 Other long term (current) drug therapy; F41.9 Anxiety disorder, unspecified; I12.9 Hypertensive chronic kidney disease with stage 1 through stage 4 chronic kidney disease, or unspecified chronic kidney disease; I70.25 Atherosclerosis of native arteries of other extremities with ulceration; K59.00 Constipation, unspecified; L97.519 Non-pressure chronic ulcer of other part of right foot with unspecified severity; M14.679 Charcot's joint, unspecified ankle and foot; M19.90 Unspecified osteoarthritis, unspecified site; N18.2 Chronic kidney disease, stage 2 (mild); S92.313A Displaced fracture of first metatarsal bone, unspecified foot, initial encounter for closed fracture; Z89.429 Acquired absence of other toe(s), unspecified side; Z91.19 Patient's noncompliance with other medical treatment and regimen
CPT/HCPCS: 10060; 36415; 78315; 80048; 80053; 80202; 82272; 83036; 83605; 85025; 85610; 85730; 86850; 86900; 86901; 86920; 87040; 87070; 87077; 87186; 87205; 93923; 96361; 96365; 96374; 96375; 99285

== ENCOUNTER 2019-02-12 07:03 | Emergency (ER) | payer OTHER ==
[~2019-02-12 07:03] MED LIST: DEXTROSE 5% IN WATER 250 ML BAG IV ONE; EPINEPHrine 10 ML SYRINGE (0.1 MG/ML) ONE; NOREPINEPHRINE 1 MG/ML 4 ML VIAL IV ONE
[2019-02-12] MEDS ORDERED: NOREPINEPHRINE 4 MG in SODIUM CHLORIDE 0.9% 250 ML IV ONE (07:27)
[2019-02-12] MEDS ORDERED: SODIUM CHLORIDE 0.9% 500 ML 500 ML IV ONE ×3 (07:29→09:00)
[2019-02-12 07:35] LABS: ABG Oxygen Saturation 97.5 % (94-97); ABG PO2 255 mmHg (83-108); ABG TCO2 10 mmol/L (19-24); Allen Test Performed? Yes
[2019-02-12 07:37] LABS: Glucose,Whole Blood 293 mg/dL (75-99)
--- NOTE | 2019-02-12 07:40 | ED ---
General Adult HPI - General Chief complaint: Cardiac Arrest/CPR Stated complaint: Cardiac Arrest Source: EMS, RN notes reviewed, old records reviewed Mode of arrival: EMS - History of Present Illness Initial comments: This is a 63-year-old male who presents emergency Department with a past mental history significant for diabetes hypertension high cholesterol. Patient was at home when family heard a loud sound in the bathroom they went in and he was unresponsive. When EMS arrived the patient was in asystole they started to follow ACLS protocol the noted the patient was in PEA after that but still had no pulse. Patient had pulses returned at about 28 minutes after they got there. Patient was initially seen by EMS at 608. In route the patient again lost pulses and was again in PEA. On arrival patient appeared to be in PEA no pulses were able to be obtained in CPR continued. Prior to arrival patient received 5 epinephrine. Patient had return of pulses after being in the emergency depart ment approximately 10 minutes on blood pressure was low patient was started on Levophed. - Related Data Home Medications Medication Instructions Recorded Confirmed Doxazosin [Cardura] 4 mg PO HS 03/24/15 02/12/19 Ferrous Sulfate [Feosol] 325 mg PO BID 03/24/15 02/12/19 Fluticasone Nasal [place] [Flonase 2 spray EA NOSTRIL DAILY PRN 03/24/15 02/12/19 Nasal [place]] Gabapentin 800 mg PO TID PRN 03/24/15 02/12/19 amLODIPine [Norvasc] 2.5 mg PO DAILY 03/24/15 02/12/19 glipiZIDE [Glucotrol] 10 mg PO DAILY 03/24/15 02/12/19 metFORMIN HCL [Glucophage] 500 mg PO BID-W/MEALS 03/24/15 02/12/19 ALPRAZolam [Xanax] 1 mg PO BID PRN 04/21/15 02/12/19 Aspirin EC [Ecotrin] 325 mg PO DAILY 03/08/16 02/12/19 Fenofibrate [Lofibra] 160 mg PO HS 03/08/16 02/12/19 Mupirocin [Mupirocin 2%] 1 applic TOPICAL TID 03/08/16 02/12/19 Acetaminophen with Codeine 1 tab PO Q8H PRN 07/02/16 02/12/19 [Acetaminophen-Cod #4 Tablet] SILVER sulfADIAZINE CREAM 1 applic TOPICAL TID 02/12/19 02/12/19 [Silvadene Cream] Allergies Allergy/AdvReac Type Severity Reaction Status Date / Time No Known Allergies Allergy Verified 07/02/16 11:38 Review of Systems ROS Statement: Those systems with pertinent positive or pertinent negative responses have been documented in the HPI. ROS Other: All systems not noted in ROS Statement are negative. Past Medical History Past Medical History: Diabetes Mellitus, Hyperlipidemia, Hypertension, Osteoarthritis (OA) Additional Past Medical History / Comment(s): neuropathy. wound rt foot History of Any Multi-Drug Resistant Organisms: None Reported Past Surgical History: Tonsillectomy Additional Past Surgical History / Comment(s): cyst removed from testicle Past Anesthesia/Blood Transfusion Reactions: No Reported Reaction Past Psychological History: Anxiety Smoking Status: Current every day smoker Past Alcohol Use History: None Reported Past Drug Use History: None Reported - Past Family History Mother Family Medical History: Unable to Obtain Additional Family Medical History / Comment(s): adopted General Exam - General Exam Comments Initial Comments: GENERAL: Patient is well-developed and well-nourished. ENT: Neck is soft and supple. Oropharynx is clear. Moist mucous membranes. Neck has full range of motion without eliciting any pain. EYES: The sclera were anicteric and conjunctiva were pink and moist. PULMONARY: Patient is being bagged and breath sounds are heard bilaterally CARDIOVASCULAR: Initially no heart sounds heard ABDOMEN: No distention noted on the abdomen SKIN: Skin is clear with no lesions or rashes and otherwise unremarkable. NEUROLOGIC: Patient is completely unresponsive. Patient has a GCS of 3 MUSCULOSKELETAL: No gross abnormalities. Extremities noted PSYCHIATRIC: Unable to evaluate Course Vital Signs 02/12/19 02/12/19 02/12/19 07:10 07:15 07:20 Pulse Rate 88 90 89 Respiratory 24 24 24 Rate Blood Pressure 68/57 51/33 64/37 O2 Sat by Pulse 100 100 100 Oximetry 02/12/19 02/12/19 02/12/19 07:25 07:30 07:35 Pulse Rate 91 90 90 Respiratory 24 24 24 Rate Blood Pressure 75/37 55/32 58/39 O2 Sat by Pulse 100 100 100 Oximetry 02/12/19 02/12/19 02/12/19 07:40 07:45 07:50 Pulse Rate 91 98 96 Respiratory 24 24 24 Rate Blood Pressure 64/36 64/36 85/43 O2 Sat by Pulse 100 Oximetry 02/12/19 02/12/19 02/12/19 08:00 08:04 08:10 Pulse Rate 95 83 90 Respiratory 24 24 24 Rate Blood Pressure 61/36 94/86 56/36 O2 Sat by Pulse 100 Oximetry 02/12/19 02/12/19 02/12/19 08:20 09:15 09:35 Pulse Rate 95 88 Respiratory 24 24 Rate Blood Pressure 57/39 61/40 64/40 O2 Sat by Pulse 97 Oximetry 02/12/19 02/12/19 02/12/19 10:18 10:20 10:30 Pulse Rate 81 74 84 Respiratory 24 24 24 Rate Blood Pressure 57/32 57/32 64/38 O2 Sat by Pulse 97 97 95 Oximetry 02/12/19 02/12/19 02/12/19 10:40 10:50 11:00 Pulse Rate 79 85 79 Respiratory 24 24 24 Rate Blood Pressure 64/41 65/40 66/37 O2 Sat by Pulse 94 L 93 L 91 L Oximetry 02/12/19 02/12/19 02/12/19 11:10 11:18 11:20 Pulse Rate 82 51 L Respiratory 24 24 21 Rate Blood Pressure 58/37 49/25 O2 Sat by Pulse 93 L 92 L 78 L Oximetry Procedures - Intubation Laryngoscope: Ho Size: 3 ET Tube Size: 8 ET Tube Uncuffed: No Tube Secured Location: teeth Tube Placement Confirmation: visualized tube passing through cords, equal breath sounds bilaterally, no breath sounds over epigastrium, confirmation by capnometry Intubation Complications: none Medical Decision Making - Medical Decision Making EKG shows A. fib at 90 bpm QRS 138 QT interval 42 QTC is 491. Patient's EKG shows atrial fibrillation with right bundle-branch block and some flipped T waves inferiorly. Patient had pulses returned in the emergency department patient was then placed on Levophed. I intubated the patient upon arrival. I spoke with Dr. Bailey and he came down to the emergency department to see the patient. CT of the brain showed no acute abnormality. CT of C-spine showed no acute normalities. Dr. Stafford was called and he never returned the phone call. Echo showed right heart strain and a CT of the chest was done to rule out PE. At this point heparin was given a high dose. Patient was maxed out on Levophed and the patient coded again please see the code sheet CT of the chest showed no pulmonary embolism. There was some atelectasis versus infiltrate bilaterally patient was given antibiotics. Patient was on Levophed and the patient coded again please see the code sheet. Patient was not able to be oxygen even when being bagged had no pulse perform CPR and the patient was pronounced at 1127. Patient is a GCS of 3 the entire time he was in the emergency department. - Lab Data Result diagrams: 02/12/19 10:20 02/12/19 10:20 Lab Results 02/12/19 02/12/19 02/12/19 Range/Units 07:17 07:34 09:07 WBC (3.8-10.6) k/uL RBC (4.30-5.90) m/uL Hgb (13.0-17.5) gm/dL Hct (39.0-53.0) % MCV (80.0-100.0) fL MCH (25.0-35.0) pg MCHC (31.0-37.0) g/dL RDW (11.5-15.5) % Plt Count (150-450) k/uL Neutrophils % (Manual) % Band Neutrophils % % Lymphocytes % (Manual) % Monocytes % (Manual) % Eosinophils % (Manual) % Basophils % (Manual) % Metamyelocytes % % Myelocytes % % Neutrophils # (Manual) (1.3-7.7) k/uL Lymphocytes # (Manual) (1.0-4.8) k/uL Monocytes # (Manual) (0-1.0) k/uL Eosinophils # (Manual) (0-0.7) k/uL Basophils # (Manual) (0-0.2) k/uL Metamyelocytes # (Man) (0) k/uL Myelocytes # (Manual) (0) k/uL Nucleated RBCs (0-0) /100 WBC Manual Slide Review Polychromasia Hypochromasia Poikilocytosis (manual Macrocytosis Crenated Cell PT (9.0-12.0) sec INR (<1.2) APTT (22.0-30.0) sec Sample Site rfem lfem ABG pH <6.80 L* <6.80 L* (7.35-7.45) ABG pCO2 84 H* 68 H (35-45) mmHg ABG pO2 255 H 172 H (83-108) mmHg ABG HCO3 7 L* 9 L* (21-25) mmol/L ABG Total CO2 10 L 11 L (19-24) mmol/L ABG O2 Saturation 97.5 H 96.6 (94-97) % ABG Base Excess -32.0 -27.2 mmol/L Isma Test Yes Yes FiO2 100 70 % Sodium (137-145) mmol/L Potassium (3.5-5.1) mmol/L Chloride (98-107) mmol/L Carbon Dioxide (22-30) mmol/L Anion Gap mmol/L BUN (9-20) mg/dL Creatinine (0.66-1.25) mg/dL Est GFR (CKD-EPI)AfAm (>60 ml/min/1.73 sqM) Est GFR (CKD-EPI)NonAf (>60 ml/min/1.73 sqM) Glucose (74-99) mg/dL POC Glucose (mg/dL) 293 H (75-99) mg/dL POC Glu Systems Operator ID Trinoker, Maryjane Plasma Lactic Acid Edy (0.7-2.0) mmol/L Calcium (8.4-10.2) mg/dL Magnesium (1.6-2.3) mg/dL Total Bilirubin (0.2-1.3) mg/dL AST (17-59) U/L ALT (21-72) U/L Alkaline Phosphatase (38-126) U/L Troponin I (0.000-0.034) ng/mL Total Protein (6.3-8.2) g/dL Albumin (3.5-5.0) g/dL 02/12/19 02/12/19 02/12/19 Range/Units 10:20 10:20 10:20 WBC 4.1 (3.8-10.6) k/uL RBC 1.97 L (4.30-5.90) m/uL Hgb 7.1 L (13.0-17.5) gm/dL Hct 24.0 L (39.0-53.0) % MCV 121.5 H (80.0-100.0) fL MCH 35.9 H (25.0-35.0) pg MCHC 29.5 L (31.0-37.0) g/dL RDW 14.8 (11.5-15.5) % Plt Count 337 (150-450) k/uL Neutrophils % (Manual) 34 % Band Neutrophils % 14 % Lymphocytes % (Manual) 34 % Monocytes % (Manual) 2 % Eosinophils % (Manual) 1 % Basophils % (Manual) 1 % Metamyelocytes % 12 % Myelocytes % 4 % Neutrophils # (Manual) 1.90 (1.3-7.7) k/uL Lymphocytes # (Manual) 1.39 (1.0-4.8) k/uL Monocytes # (Manual) 0.08 (0-1.0) k/uL Eosinophils # (Manual) 0.04 (0-0.7) k/uL Basophils # (Manual) 0.04 (0-0.2) k/uL Metamyelocytes # (Man) 0.49 H (0) k/uL Myelocytes # (Manual) 0.16 H (0) k/uL Nucleated RBCs 2 H (0-0) /100 WBC Manual Slide Review Performed Polychromasia Present Hypochromasia Marked Poikilocytosis (manual Present Macrocytosis Marked A Crenated Cell Present PT 17.3 H (9.0-12.0) sec INR 1.7 H (<1.2) APTT 58.3 H (22.0-30.0) sec Sample Site ABG pH (7.35-7.45) ABG pCO2 (35-45) mmHg ABG pO2 (83-108) mmHg ABG HCO3 (21-25) mmol/L ABG Total CO2 (19-24) mmol/L ABG O2 Saturation (94-97) % ABG Base Excess mmol/L Isma Test FiO2 % Sodium 146 H (137-145) mmol/L Potassium 4.8 (3.5-5.1) mmol/L Chloride 115 H (98-107) mmol/L Carbon Dioxide 9 L* (22-30) mmol/L Anion Gap 22 mmol/L BUN 34 H (9-20) mg/dL Creatinine 2.64 H (0.66-1.25) mg/dL Est GFR (CKD-EPI)AfAm 29 (>60 ml/min/1.73 sqM) Est GFR (CKD-EPI)NonAf 25 (>60 ml/min/1.73 sqM) Glucose 184 H (74-99) mg/dL POC Glucose (mg/dL) (75-99) mg/dL POC Glu Systems Operator ID Plasma Lactic Acid Edy (0.7-2.0) mmol/L Calcium 6.7 L (8.4-10.2) mg/dL Magnesium 2.7 H (1.6-2.3) mg/dL Total Bilirubin 0.4 (0.2-1.3) mg/dL AST 274 H (17-59) U/L ALT 233 H (21-72) U/L Alkaline Phosphatase 75 (38-126) U/L Troponin I (0.000-0.034) ng/mL Total Protein 3.9 L (6.3-8.2) g/dL Albumin 1.7 L (3.5-5.0) g/dL 02/12/19 02/12/19 Range/Units 10:20 10:28 WBC (3.8-10.6) k/uL RBC (4.30-5.90) m/uL Hgb (13.0-17.5) gm/dL Hct (39.0-53.0) % MCV (80.0-100.0) fL MCH (25.0-35.0) pg MCHC (31.0-37.0) g/dL RDW (11.5-15.5) % Plt Count (150-450) k/uL Neutrophils % (Manual) % Band Neutrophils % % Lymphocytes % (Manual) % Monocytes % (Manual) % Eosinophils % (Manual) % Basophils % (Manual) % Metamyelocytes % % Myelocytes % % Neutrophils # (Manual) (1.3-7.7) k/uL Lymphocytes # (Manual) (1.0-4.8) k/uL Monocytes # (Manual) (0-1.0) k/uL Eosinophils # (Manual) (0-0.7) k/uL Basophils # (Manual) (0-0.2) k/uL Metamyelocytes # (Man) (0) k/uL Myelocytes # (Manual) (0) k/uL Nucleated RBCs (0-0) /100 WBC Manual Slide Review Polychromasia Hypochromasia Poikilocytosis (manual Macrocytosis Crenated Cell PT (9.0-12.0) sec INR (<1.2) APTT (22.0-30.0) sec Sample Site ABG pH (7.35-7.45) ABG pCO2 (35-45) mmHg ABG pO2 (83-108) mmHg ABG HCO3 (21-25) mmol/L ABG Total CO2 (19-24) mmol/L ABG O2 Saturation (94-97) % ABG Base Excess mmol/L Isma Test FiO2 % Sodium (137-145) mmol/L Potassium (3.5-5.1) mmol/L Chloride (98-107) mmol/L Carbon Dioxide (22-30) mmol/L Anion Gap mmol/L BUN (9-20) mg/dL Creatinine (0.66-1.25) mg/dL Est GFR (CKD-EPI)AfAm (>60 ml/min/1.73 sqM) Est GFR (CKD-EPI)NonAf (>60 ml/min/1.73 sqM) Glucose (74-99) mg/dL POC Glucose (mg/dL) (75-99) mg/dL POC Glu Systems Operator ID Plasma Lactic Acid Edy 16.8 H* (0.7-2.0) mmol/L Calcium (8.4-10.2) mg/dL Magnesium (1.6-2.3) mg/dL Total Bilirubin (0.2-1.3) mg/dL AST (17-59) U/L ALT (21-72) U/L Alkaline Phosphatase (38-126) U/L Troponin I 0.053 H* (0.000-0.034) ng/mL Total Protein (6.3-8.2) g/dL Albumin (3.5-5.0) g/dL Critical Care Time Critical Care Time: Yes Total Critical Care Time: 80 Disposition Clinical Impression: Cardiopulmonary arrest Disposition: Referrals: Nils Chatman MD [Primary Care Provider] - 1-2 days Time of Disposition: 11:33 Preliminary Cause of : Cardiopulmonary arrest
[2019-02-12 07:43] LABS: ABG HCO3 7 mmol/L (21-25); ABG PCO2 84 mmHg (35-45); ABG PH <6.80 (7.35-7.45)
[2019-02-12] MEDS ORDERED: SODIUM BICARB 8.4% 50 ML SYR (1 MEQ/ML) IV STA (07:46)
--- NOTE | 2019-02-12 07:57 | P.CRDCN ---
History of Present Illness Consult date: 02/12/19 Chief complaint: Loss of consciousness History of present illness: This is a 63-year-old gentleman who while requested to see in the ER this morning for cardiopulmonary arrest. Currently the patient is intubated. The history was taken from the ER physician, the nurse taking care of the patient, as well as from the chart. The patient does have a past medical history significant for diabetes, hypertension, and dyslipidemia. Also he does have history of chronic kidney disease according to the EMR. The patient lives with his family at home, with the here a drop at home and she came in to check on her where he was down on the floor. EMS was called and the patient was found to be in asystole. See a power was performed for 27 minutes and the patient was given 5 rounds of epinephrine. He was brought to normal sinus [facility]. On the way to the hospital, the patient arrested again but this time with PDA. Again CPR was performed for unknown duration at this point. In the emergency room here, the patient arrested again with PDA and CPR was performed again for about 10 minutes. The patient was brought back into atrial fibrillation was controlled heart rate. The EKG revealed right bundle branch block with about half millimeter ST segment elevation in aVR and ST segment depression inferiorly. Hemodynamically the patient is very hypotensive and requiring norepinephrine for support. Beside that he is very acidotic on the ABG. There is some concern about intracranial bleeding since the patient to drop and he hit his head on the floor. The patient is unstable to undergo a computed tomography scan of the brain at this point because he is quite hypertensive. The plan is to proceed with a CTA of the head as soon as he is stable to rule out intracranial bleeding. No family with the patient at this point. The only blood work available at the ABG which showed severe acidosis and currently the patient is in process of receiving bicarbonate. The only previous medical history available on the patient is that he is diabetic, hypertension, dyslipidemia, and history of bilateral wounds on both feet. This history was taken from the chart. The family are not right at this point. Past Medical History Past Medical History: Diabetes Mellitus, Hyperlipidemia, Hypertension, Osteoarthritis (OA) Additional Past Medical History / Comment(s): neuropathy. wound rt foot History of Any Multi-Drug Resistant Organisms: None Reported Past Surgical History: Tonsillectomy Additional Past Surgical History / Comment(s): cyst removed from testicle Past Anesthesia/Blood Transfusion Reactions: No Reported Reaction Past Psychological History: Anxiety Smoking Status: Current every day smoker Past Alcohol Use History: None Reported Past Drug Use History: None Reported - Past Family History Mother Family Medical History: Unable to Obtain Additional Family Medical History / Comment(s): adopted Medications and Allergies Home Medications Medication Instructions Recorded Confirmed Type Doxazosin [Cardura] 4 mg PO HS 03/24/15 07/02/16 History Ferrous Sulfate [Feosol] 325 mg PO BID 03/24/15 07/02/16 History Fluticasone Nasal [place] [Flonase 2 spray EA NOSTRIL DAILY PRN 03/24/15 07/02/16 History Nasal [place]] Gabapentin 800 mg PO TID 03/24/15 07/02/16 History Simvastatin [Zocor] 20 mg PO HS 03/24/15 07/02/16 History amLODIPine [Norvasc] 2.5 mg PO DAILY 03/24/15 07/02/16 History glipiZIDE [Glucotrol] 10 mg PO DAILY 03/24/15 07/02/16 History metFORMIN HCL [Glucophage] 500 mg PO BID-W/MEALS 03/24/15 07/02/16 History ALPRAZolam [Xanax] 1 mg PO BID 04/21/15 07/02/16 History SILVER sulfADIAZINE CREAM 1 applic TOPICAL HS 04/21/15 07/02/16 History [Silvadene Cream] Aspirin EC [Ecotrin] 325 mg PO DAILY 03/08/16 07/02/16 History Fenofibrate [Lofibra] 160 mg PO HS 03/08/16 07/02/16 History Mupirocin [Mupirocin 2%] 1 applic TOPICAL HS 03/08/16 07/02/16 History Acetaminophen with Codeine 1 tab PO Q6HR 07/02/16 07/02/16 History [Acetaminophen-Cod #4 Tablet] Allergies Allergy/AdvReac Type Severity Reaction Status Date / Time No Known Allergies Allergy Verified 07/02/16 11:38 Physical Exam Vitals: Intake and Output 02/11/19 02/12/19 02/12/19 22:59 06:59 14:59 Intake Total 1.748 Balance 1.748 Intake: Intake, IV Titration 1.748 Amount Norepinephrine 4 mg In 1.748 Sodium Chloride 0.9% 250 ml @ 0.05 MCG/KG/MIN 13. 108 mls/hr IV .[id number] ONE Rx#:[id number] Other: Weight 68.81 kg - Constitutional General appearance: no acute distress - Respiratory Respiratory: bilateral: diminished - Cardiovascular Rhythm: regular Heart sounds: normal: S1, S2 Results Current Medications Generic Name Dose Route Start Last Admin Trade Name Freq PRN Reason Stop Dose Admin Norepinephrine Bitartrate 4 mg 254 mls @ 13.108 mls/hr 02/12/19 07:27 02/12/19 07:30 / Sodium Chloride IV 02/13/19 02:49 0.7 mcg/kg/min .[id number] ONE 183.516 mls/hr Titration Protocol 0.05 MCG/KG/MIN Sodium Chloride 500 mls @ 999 mls/hr 02/12/19 07:29 02/12/19 07:03 Saline 0.9% IV 02/12/19 07:59 999 mls/hr .Q31M ONE Administration Sodium Chloride 500 mls @ 999 mls/hr 02/12/19 07:30 02/12/19 07:03 Saline 0.9% IV 02/12/19 08:00 999 mls/hr .Q31M ONE Administration Intake and Output 02/11/19 02/12/19 02/12/19 22:59 06:59 14:59 Intake Total 1.748 Balance 1.748 Intake: Intake, IV Titration 1.748 Amount Norepinephrine 4 mg In 1.748 Sodium Chloride 0.9% 250 ml @ 0.05 MCG/KG/MIN 13. 108 mls/hr IV .[id number] ONE Rx#:[id number] Other: Weight 68.81 kg Patient Weight 02/13/19 06:59 Weight 68.81 kg Assessment and Plan Assessment: Assessment #1 cardiopulmonary arrest #2 had a trauma #3 diabetes #4 hypertension #5 chronic kidney disease #6 dyslipidemia #7 bilateral lower extremities wound #8 severe metabolic acidosis Plan #1 rule out intracranial bleeding. #2 proceed with a CTA of the brain once the patient is hemodynamically stable #3 I would not stevens and take the patient to the laboratory mechanical technician before intracranial bleeding ruled out #4 I will obtain a stat echocardiogram #5 continue supporting the blood pressure was no epinephrine #6 correct the acidosis. Currently he is in process of receiving bicarb #7 ICU admission #8 further recommendation to follow the computed tomography scan of the brain Thank you for allowing us participate in his care.
[2019-02-12] MEDS ORDERED: SODIUM CHLORIDE 0.9% 1,000 ML IV ONE (08:20)
--- NOTE | 2019-02-12 08:26 | XR ---
EXAMINATION TYPE: XR chest 1V portable DATE OF EXAM: 02/12/2019 COMPARISON: 04/21/2015 HISTORY: Cardiac arrest. Chest pain. TECHNIQUE: Single frontal view of the chest is obtained. FINDINGS: Enteric and endotracheal tubes have been placed. Enteric tube should be advanced approxima tely 7 cm for optimal placement. Endotracheal tube should be retracted approximately 3 cm for optimal placement as it is located in the right mainstem bronchus. Patchy opacities throughout the lungs are seen predominating in the right upper lobe that could relate to atelectasis given the right mainstem bronchial intubation. Cardiomediastinal silhouette is enlarged. No pneumothorax or pleural effusion seen. IMPRESSION: 1. Right mainstem intubation. Retraction of 2 cm is recommended. Advancement of the enteric tube 7 cm is also recommended. 2. Multifocal patchy opacities, possibly atelectasis given the right mainstem bronchial intubation.
--- NOTE | 2019-02-12 08:36 | CT ---
EXAMINATION TYPE: CT brain cspine wo con DATE OF EXAM: 02/12/2019 COMPARISON: Chest x-ray the same date HISTORY: Cardiac arrest CT DLP: 1344.1 mGycm. Automated Exposure Control for Dose Reduction was Utilized. TECHNIQUE: CT scan of the head and cervical spine are performed without contrast. FINDINGS: There is no acute intracranial hemorrhage, mass effect, or midline shift identified. The ventricles and sulci are within normal limits in size. The globes are intact. Moderate paranasal si nus disease within the ethmoid, sphenoid, and maxillary sinuses and mild mucosal thickening of the fr ontal sinuses. Cervical spine is visualized in its entirety from C1 through upper thoracic levels and demonstrates s atisfactory alignment without evidence of acute fracture or dislocation. Prevertebral soft tissue ap pears within normal limits. The C1-C2 articulation is unremarkable. Calcification of the posterior longitudinal ligament is incidentally seen. Mild multilevel degenerative disc disease predominates at C5-C6. Emphysematous changes are seen at the lung apices as well as scattered groundglass opacities. Enteric and endotracheal tubes are partially visualized. Punctate foci of intravenous air incidental ly seen. Mild atheromatous changes of the carotid arteries. IMPRESSION: 1. There is no acute fracture or dislocation evident in the cervical spine. 2. No acute intracranial hemorrhage, mass effect, or midline shift is seen. 3. Patchy opacities in the lung apices may represent atelectasis, pulmonary edema or much less likely pneumonia.
[2019-02-12] MEDS ORDERED: HEPARIN SODIUM,PORCINE 10,000 UNIT/ML 1 ML VIAL IV ONE (08:38)
[2019-02-12] MEDS ORDERED: HEPARIN SOD,PORK IN 0.45% NACL 25,000 UNIT in 0.45% NACL 1 250ML.BAG IV SCH (08:45)
[2019-02-12 09:09] LABS: ABG Base Excess -27.2 mmol/L; ABG Oxygen Saturation 96.6 % (94-97); ABG PCO2 68 mmHg (35-45); ABG PO2 172 mmHg (83-108); ABG TCO2 11 mmol/L (19-24); Allen Test Performed? Yes
[2019-02-12 09:14] LABS: ABG PH <6.80 (7.35-7.45)
--- NOTE | 2019-02-12 10:14 | CT ---
EXAMINATION TYPE: CT chest angio for PE DATE OF EXAM: 02/12/2019 COMPARISON: NONE HISTORY: Cardiac arrest CT DLP: 357 mGycm. Automated Exposure Control for Dose Reduction was Utilized. CONTRAST: CTA scan of the thorax is performed without and with IV Contrast, patient injected with 100 ml mL of Isovue 370, pulmonary embolism protocol. MIP Images are created on CT scanner and reviewed. FINDINGS: LUNGS: There is background chronic emphysematous change with areas of groundglass opacity seen bilate rally more prominent in the right upper lobe versus left upper lobe there are additional areas of con solidation and/or atelectasis in the bilateral lower lobes with additional involvement of the upper a spect bilateral lower lobes greater on the left for reference axial image 62. There is relative spari ng of the right middle lobe and lingula. No pleural effusion or pneumothorax. Endotracheal tube termi nates in right main stem bronchus and should be pulled back 5 to 6 cm. MEDIASTINUM: Oral gastric tube terminates in distal esophagus and should be advanced 8 to 10 cm. Ther e is satisfactory enhancement of the pulmonary artery and its branches, there is no CT evidence for p ulmonary embolism. There are no greater than 1 cm hilar or mediastinal lymph nodes. No cardiomegal y or pericardial effusion is seen. Some reflux of contrast into IVC and hepatic veins with moderate r ight atrial dilatation suggest degree of right heart failure OTHER: Trace perihepatic and perisplenic ascites. Air-fluid level in slightly prominent stomach noted . IMPRESSION: 1. No CT evidence for acute pulmonary embolism. 2. Low-lying endotracheal tube into right mainstem bronchus. Advise pulling back 5 to 6 cm. 3. Orogastric tube terminates distal esophagus, advise advancing 8 to 10 cm. 4. Background chronic emphysematous change with bilateral multifocal areas of edema and/or infiltrate as detailed above.
[2019-02-12] MEDS ORDERED: SODIUM CHLORIDE 0.9% 1,000 ML IV SCH (10:45)
--- NOTE | 2019-02-12 10:56 | ECHOF ---
Referral Reason:cardiac arrest MEASUREMENTS -------- HEIGHT: 167.6 cm WEIGHT: 70.3 kg BP: RVIDd: 2.8 cm (< 3.3) IVSd: 1.1 cm (0.6 - 1.1) LVIDd: 4.7 cm (3.9 - 5.3) LVPWd: 1.2 cm (0.6 - 1.1) IVSs: 1.7 cm LVIDs: 3.1 cm LVPWs: 1.6 cm LA Diam: 3.0 cm (2.7 - 3.8) Ao Diam: 3.2 cm (2.0 - 3.7) AV Cusp: 1.8 cm (1.5 - 2.6) MV EXCURSION: 18.221 mm (> 18.000) MV EF SLOPE: 48 mm/s (70 - 150) EPSS: 0.7 cm RAP: 15.00 mmHg RVSP: 49.38 mmHg FINDINGS -------- Atrial fibrillation. This was a technically adequate study. The left ventricular size is normal. There is borderline concentric left ventricular hypertrophy. Overall left ventricular systolic function is mildly impaired with, an EF between 45 - 50 %. Basal inferior LV wall motion is hypokinetic. Basal inferoseptal LV wall motion is hypokinetic. The right ventricle is normal in size. The left atrial size is normal. The right atrium is normal in size. Interatrial and interventricular septum intact. Aortic valve is trileaflet and is mildly thickened. The mitral valve is normal. Mild tricuspid regurgitation present. There is moderate pulmonary hypertension. The right ventric ular systolic pressure, as measured by Doppler, is 49.38mmHg. The pulmonic valve was not well visualized. The aortic root size is normal. Normal inferior vena cava with less than 50% inspiratory collapse consistent with estimated right atr ial pressure of 15 mmHg. CONCLUSIONS -------- 1. Atrial fibrillation. 2. This was a technically adequate study. 3. The left ventricular size is normal. 4. There is borderline concentric left ventricular hypertrophy. 5. Overall left ventricular systolic function is mildly impaired with, an EF between 45 - 50 %. 6. Basal inferior LV wall motion is hypokinetic. 7. Basal inferoseptal LV wall motion is hypokinetic. 8. The right ventricle is normal in size. 9. The left atrial size is normal. 10. The right atrium is normal in size. 11. Interatrial and interventricular septum intact. 12. Aortic valve is trileaflet and is mildly thickened. 13. The mitral valve is normal. 14. Mild tricuspid regurgitation present. 15. There is moderate pulmonary hypertension. 16. The right ventricular systolic pressure, as measured by Doppler, is 49.38mmHg. 17. The pulmonic valve was not well visualized. 18. The aortic root size is normal. 19. Normal inferior vena cava with less than 50% inspiratory collapse consistent with estimated right atrial pressure of 15 mmHg. INTERNAL MEDICINE DOCTOR: Latasha Stewart RDCS
[2019-02-12 10:58] LABS: INR 1.7 (<1.2); Partial Thromboplastin Time 58.3 sec (22.0-30.0); Prothrombin Time 17.3 sec (9.0-12.0)
[2019-02-12 10:59] LABS: Albumin 1.7 g/dL (3.5-5.0); Calcium 6.7 mg/dL (8.4-10.2); Magnesium 2.7 mg/dL (1.6-2.3); Potassium 4.8 mmol/L (3.5-5.1); Total Bilirubin 0.4 mg/dL (0.2-1.3); Total Protein 3.9 g/dL (6.3-8.2)
[2019-02-12 11:18] LABS: Hypochromasia Marked; MCH 35.9 pg (25.0-35.0); MCHC 29.5 g/dL (31.0-37.0); MCV 121.5 fL (80.0-100.0); Macrocytosis Marked; Platelet Count 337 k/uL (150-450); RBC 1.97 m/uL (4.30-5.90); RDW 14.8 % (11.5-15.5)
[2019-02-12] MEDS ORDERED: LEVOFLOXACIN 750MG-D5W PMX 750 MG in DEXTROSE/WATER 1 150ML.BAG IVPB STA (11:19)
[2019-02-12 11:23] LABS: HGB 7.1 gm/dL (13.0-17.5)
--- NOTE | 2019-02-12 11:28 | XR ---
EXAMINATION TYPE: XR chest 1V portable DATE OF EXAM: 02/12/2019 COMPARISON: Chest x-ray and CTA chest earlier today. HISTORY: Hypoxia. TECHNIQUE: Single frontal view of the chest is obtained. FINDINGS: There is interval improved positioning of endotracheal tube now at inferior aortic knob le fer approximately 3 to 4 cm above lisa. Interval positioning of orogastric tube projecting below di aphragm after advancement. Background chronic emphysematous change with multifocal airspace opacities. No pleural effusion or pn eumothorax. Cardiac silhouette size remains within normal limits. Entire left lung base not included. Visualized osseous structures intact. IMPRESSION: 1. Improved positioning of endotracheal and orogastric tubes after adjustment. 2. Background chronic emphysematous and parenchymal fibrotic changes with multifocal areas of acute i nfiltrate and/or edema redemonstrated. Findings seen better on CT versus x-ray.
[2019-02-12 11:39] VITALS: BP 49/25; PULSE 51; RESP 21
[2019-02-12 12:01] LABS: Band Neutrophils % 14 %; Basophils # (M) 0.04 k/uL (0-0.2); Eosinophils # (M) 0.04 k/uL (0-0.7); Lymphocytes # (M) 1.39 k/uL (1.0-4.8); Metamyelocytes # (M) 0.49 k/uL (0); Metamyelocytes % 12 %; Monocytes # (M) 0.08 k/uL (0-1.0); Myelocytes # (M) 0.16 k/uL (0); Myelocytes % 4 %; Neutrophils % (M) 34 %; Nucleated Red Blood Cells 2 /100 WBC (0-0); Total Cells Counted 200; WBC 4.1 k/uL (3.8-10.6)
[2019-02-12 12:02] LABS: Crenated RBC Present; Poikilocytosis (M) Present; Polychromasia Present
[2019-02-13 07:27] LABS: ABG HCO3 9 mmol/L (21-25)
== END 2019-02-12 14:07 | disposition expired ==
LOC: EC 07:03
DX: I46.9 Cardiac arrest, cause unspecified (principal); I48.91 Unspecified atrial fibrillation; I45.10 Unspecified right bundle-branch block; E87.2 Acidosis; I51.89 Other ill-defined heart diseases; I12.9 Hypertensive chronic kidney disease with stage 1 through stage 4 chronic kidney disease, or unspecified chronic kidney disease; N18.9 Chronic kidney disease, unspecified; E11.22 Type 2 diabetes mellitus with diabetic chronic kidney disease; E11.42 Type 2 diabetes mellitus with diabetic polyneuropathy; E78.5 Hyperlipidemia, unspecified; S81.802A Unspecified open wound, left lower leg, initial encounter; S81.801A Unspecified open wound, right lower leg, initial encounter; F17.200 Nicotine dependence, unspecified, uncomplicated; Z79.84 Long term (current) use of oral hypoglycemic drugs; Z79.82 Long term (current) use of aspirin; Z79.899 Other long term (current) drug therapy; X58.XXXA Exposure to other specified factors, initial encounter
CPT/HCPCS: 99291; 99292; 31500; 92950; 96360; 96361 ×2; 36415; 36600; 93005; 93306; 80053; 82805; 83605; 83735; 84484; 85025; 85610; 85730; 71045; 72125; 70450; 71275; J1644 ×2; J0171; Q9967; 94002